=== PATIENT | male | born 1955 | race Caucasian/White ===

== ENCOUNTER → 2022-08-08 09:17 | Outpatient (BNVA) | payer MEDICARE, SELFPAY | PROVIDERS: PCP Family Medicine; Visit Provider Family Medicine | DX: R10.9 Unspecified abdominal pain (principal) | CPT/HCPCS: 81000 ==

== ENCOUNTER 2022-08-21 06:05 | Outpatient (CLI) | payer MEDICARE, SELFPAY ==
--- NOTE | 2022-08-21 06:26 | USCV_ITS ---
Luis Black Age: 67 Gender: M : 1955 Exam Date: 08/21/2022 06:30 Ordering Phys: Vee Santos MD Technologist: Elia Bond Exam Location: [facility] Indication: screening HISTORY: Diameter (cm) AP x Transverse x Length Velocity (cm/s) Waveform Prox Aorta: 1.50 x 1.80 x 85.90 Mid Aorta: 1.31 x 1.77 x 88.70 Distal Aorta: 1.40 x 1.67 x 80.40 Right Iliac Prox: 1.00 x 1.04 x 164.10 Left Iliac Prox: 1.05 x 1.19 x 119.60 Stent Prox Landing x x Aneurysmal Sac Max x x Lt Lat Sac Dim Rt Lat Sac Dim Stent Dist Landing x x Right Iliac Stent x x Left Iliac Stent x x Right Renal Art Left Renal Art FINDINGS: Comparison: none available. No evidence of abdominal aortic aneurysm. Atherosclerotic plaque is noted in the abdominal aorta, mild. There is evidence of atherosclerotic plaque no significan stenosis in the right common iliac artery. There is evidence of atherosclerotic plaque no significan stenosis in the left common iliac artery. CONCLUSIONS No evidence of abdominal aortic aneurysm. Dr. Génesis Meza DO (Electronically Signed) Final Date: 21 August 2022 07:56 S
== END 2022-08-21 06:06 | disposition home or self-care (01) ==
PROVIDERS: PCP Family Medicine; Visit Provider Family Medicine
DX: Z13.6 Encounter for screening for cardiovascular disorders (principal)
CPT/HCPCS: 76706

== ENCOUNTER 2022-09-04 12:05 | Outpatient (CLI) | payer MEDICARE, SELFPAY ==
--- NOTE | 2022-09-04 12:31 | XR_ITS ---
WS: [id number] Lumbar spine with flexion, extension, and neutral lateral, 09/04/2022 Clinical Data: POSTLAMINECTOMY SYNDROME Comparison: None. Findings: There is a posterior lumbar fusion from L3 through L5 with pedicle screws and connecting rods. There are artificial disks at L3-L4, L4-L5 and L5-S1. There are anterior lumbar fusion screws at L3, L4 and L5-S1. There is anterior osteoarthritic change at L1-L2 with disc narrowing at L2-L3. There is a retrolisthe sis of 0.4 cm at L2-L3. On flexion and extension there is no change in the retrolisthesis. There is c alcification in the wall of the abdominal aorta without aneurysm. XR/XR lumbar spine f/e only [id number] Impression: 1. Stable anterior and posterior lumbosacral fusion. 2. Degenerative disc narrowing at L2-L3 with retrolisthesis of 0.4 cm. 3. On flexion and extension there is no change in retrolisthesis.
== END 2022-09-04 12:06 | disposition home or self-care (01) ==
PROVIDERS: PCP Family Medicine; Visit Provider Nurse Practitioner
DX: M96.1 Postlaminectomy syndrome, not elsewhere classified (principal)
CPT/HCPCS: 72120

== ENCOUNTER → 2022-09-10 11:02 | Outpatient (BNVA) | payer MEDICARE, SELFPAY | PROVIDERS: PCP Family Medicine; Visit Provider Family Medicine | DX: R39.9 Unspecified symptoms and signs involving the genitourinary system (principal) | CPT/HCPCS: 81000; 87086 ==

== ENCOUNTER 2022-09-17 08:44 | Outpatient (CLI) | payer MEDICARE, SELFPAY ==
--- NOTE | 2022-09-17 09:00 | CT_ITS ---
WS: [id number] LDCT LUNG CANCER SCREENING HISTORY: lung cancer screening TECHNIQUE: Axial imaging performed from the apices to 1 cm below the costophrenic angles. Coronal and sagittal reformats are submitted with axial MIP series. All CT scans at [facility] use at least one of these dose optimization techniques: automated exposure control; mA and/or kV adjustment per patient size (includes targeted exams where dose is matched to clinical indication); or iterativ e reconstruction. DLP: 69.93 mGy.cm DIvol: Mean CTDIvol: 1.60 (mGy) COMPARISON: None available. Diagnostic quality: Satisfactory Lung Nodules: No pulmonary mass, nodule or endobronchial lesion. Lungs: Mild motion artifact and hazy attenuation probably related to smoking. Subsegmental area of li near atelectasis in the lingula. Heart: Normal size heart. No pericardial effusion. Other findings: No adenopathy. Very minimal atherosclerosis thoracic aorta. Small hiatal hernia. Prio r cholecystectomy. CT/CT lung screening [id number] IMPRESSION: LUNG-RADS: 1-Negative FOLLOW UP: 12 Month: Continue annual screening with LDCT OTHER FINDINGS (S MODIFIER): None.
== END 2022-09-17 08:45 | disposition home or self-care (01) ==
LOC: RAD 08:47
PROVIDERS: PCP Family Medicine; Visit Provider Family Medicine
DX: Z12.2 Encounter for screening for malignant neoplasm of respiratory organs (principal); Z87.891 Personal history of nicotine dependence; R31.9 Hematuria, unspecified
CPT/HCPCS: 71271; 81000

== ENCOUNTER 2022-10-05 10:26 | Outpatient (CLI) | payer MEDICARE, SELFPAY ==
--- NOTE | 2022-10-05 10:42 | XR_ITS ---
WS: [id number] Left shoulder, 2 views, 10/05/2022 Clinical Data: left shoulder pain Comparison: None. Findings: No fractures or dislocations are seen. The AC joint is normal. The adjacent left clavicle, left scapu la and ribs are normal. The soft tissues are unremarkable. XR/XR shoulder LT min 2V* [id number] Impression: Negative left shoulder.
--- NOTE | 2022-10-05 10:42 | XR_ITS ---
WS: [email or web address] Cervical spine, 3 views, 10/05/2022 Clinical Data: neck pain Comparison: None. Findings: No compression fractures are seen. There is degenerative disc narrowing at C3-C4, C4-C5 and C5-C6. There is osteophytic spurring from C3 through C6. There is no prevertebral soft tissue swelli ng. The odontoid is unremarkable. The soft tissues of the neck and the lung apices are normal. XR/XR cervical spine 3V* [id number] Impression: Osteoarthritis and degenerative disc disease C3-C6
== END 2022-10-05 10:27 | disposition home or self-care (01) ==
PROVIDERS: PCP Family Medicine; Visit Provider Family Medicine
DX: M25.512 Pain in left shoulder (principal); M47.812 Spondylosis without myelopathy or radiculopathy, cervical region; M50.31 Other cervical disc degeneration, high cervical region
CPT/HCPCS: 72040; 73030

== ENCOUNTER → 2022-10-15 08:39 | Outpatient (BNVA) | payer MEDICARE, SELFPAY | PROVIDERS: PCP Family Medicine; Visit Provider Anesthesiology Pain Medicine | DX: G89.29 Other chronic pain (principal); M51.16 Intervertebral disc disorders with radiculopathy, lumbar region; M79.604 Pain in right leg; M79.605 Pain in left leg | CPT/HCPCS: 99205 ==

== ENCOUNTER → 2022-10-17 13:40 | Outpatient (BNVA) | payer MEDICARE, SELFPAY | PROVIDERS: PCP Family Medicine; Visit Provider Urology | DX: R31.21 Asymptomatic microscopic hematuria (principal) | CPT/HCPCS: 52000; 81003; 87086; 88112; 99203 ==

== ENCOUNTER 2022-10-19 17:02 | Emergency (ER) | payer MEDICARE, SELFPAY ==
[2022-10-19 17:22] VITALS: PULSE 118; RESP 18; TEMP 37.2; O2SAT 95
--- NOTE | 2022-10-19 21:05 | ED_ITS ---
HPI - Fever General: Chief Complaint: Fever Stated Complaint: urinary pain/fever/cant walk Time Seen by Provider: 10/19/22 21:03 PFSH ED PFSH: Medical History Asymptomatic microscopic hematuria Chronic back pain History of diverticulitis Hyperlipidemia Seasonal allergies Tobacco use Surgical History History of back surgery x 5 History of carpal tunnel release of both wrists History of cholecystectomy Family History Father , IN HIS 80'S Diabetes Cancer colon Mother , IN HER 80'S Dementia Cancer brain tumor Denies family history of CAD (coronary artery disease) Chronic kidney disease (CKD) Family history of premature coronary artery disease Hypertension Stroke Social History Smoking and tobacco status: current every day smoker cigarettes Packs smoked per day: 1 [ Other cigarette details: started smoking at 20] Quit status (tobacco): not considering quitting Alcohol intake: current Alcohol intake frequency: holidays/special occasions only Household members: spouse Marital status: service: Yes (1 year) status: Discharged branch: [employer] Current occupational status: retired History of recent travel: No Course Vital Signs: Vital signs: Vital Signs Temperature 99.0 F 10/19/22 17:22 Pulse Rate 118 H 10/19/22 17:22 Respiratory Rate 18 10/19/22 17:22 Pulse Oximetry 95 10/19/22 17:22 Oxygen Delivery Me thod 10/19/22 17:22 Discharge Plan Discharge Condition: Stable Prescriptions: No Action atorvastatin 20 mg tablet 20 mg PO DAILY loperamide [Imodium A-D] 2 mg capsule 2 mg PO QID PRN tizanidine 4 mg tablet 4 mg PO Q8H PRN loratadine [Claritin] 10 mg tablet 10 mg PO DAILY acetaminophen [Tylenol Extra Strength] 500 mg tablet 500 mg PO Q6H PRN azelastine-fluticasone 137-50 mcg/spray spray,non-aerosol 1 spray intranasal BID Qty: 23 0RF Rx Instructions: administer into each nostril ibuprofen 800 mg tablet 800 mg PO Q8H PRN (Reason: pain) Qty: 30 0RF sulfamethoxazole-trimethoprim [Bactrim DS] 800-160 mg tablet 1 tab PO BID 7 Days Qty: 14 0RF Referrals: Vee Santos MD [Primary Care Provider] - Coding Level of Care Code 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
== END 2022-10-19 21:29 | disposition left against medical advice (07) ==
PROVIDERS: Emergency Provider Family Medicine; PCP Family Medicine
DX: Z53.21 Procedure and treatment not carried out due to patient leaving prior to being seen by health care provider (principal)

== ENCOUNTER 2022-11-07 06:00 | Outpatient (RCR) | payer MEDICARE, SELFPAY | END 2022-11-27 23:59 | disposition home or self-care (01) | LOC: SPT 06:00 | PROVIDERS: PCP Family Medicine; Visit Provider Family Medicine | DX: M25.512 Pain in left shoulder (principal); M54.2 Cervicalgia | CPT/HCPCS: 97110; 97161 ==

== ENCOUNTER 2022-11-15 10:28 | Outpatient (CLI) | payer MEDICARE, SELFPAY ==
--- NOTE | 2022-11-15 10:30 | CT_ITS ---
WS: [id number] CT ABDOMEN PELVIS TECHNIQUE: Noncontrast CT of the abdomen and contrast-enhanced CT of the abdomen and pelvis with evert nal and sagittal reformatted images. CLINICAL INFORMATION: HEMATURIA COMPARISON: None. DLP: 2185.[address] scans at [facility] use at least one of these dose optimization techniques: automated e xposure control; mA and/or kV adjustment per patient size (includes targeted exams where dose is matc hed to clinical indication); or iterative reconstruction. FINDINGS: Lung bases are well aerated. Slight bibasilar atelectasis. Diffuse fatty infiltration liver. Cholecys tectomy clips. Normal portal vein and splenic vein. Normal pancreatic parenchymal enhancement. Normal spleen. Normal GE junction. Normal caliber abdominal aorta. Aortic calcification. Celiac and SMA are patent. Adrenal glands are normal. Normal renal parenchymal enhancement. No hydronephrosis. Small RI GHT renal cyst measuring 6 mm. Normal excretion on the delayed images. No filling defects in the ureter. Bladder is decompressed wit h mild diffuse bladder wall thickening. Enlarged prostate measuring 3.5 x 4.1 CM. Poor filling of the anterior aspect of the bladder with bladder wall thickening. Suggestion of a small amount of interna l debris in this location. This can be further evaluated with cystoscopy. Sigmoid diverticulosis. No evidence of acute diverticulitis. No free fluid in the abdomen or pelvis. Prior postoperative changes anterior and posterior fusion lumbar spine. Laminectomy defects. Grade 1 anterolisthesis L5 on S1. Interbody fusion grafts. CT/CT abdomen pelvis wo/w [id number] IMPRESSION: 1. Normal bilateral renal parenchymal enhancement. No hydronephrosis. Small RI GHT renal cyst measuring 6 mm. 2. Normal ureters bilaterally. No filling defects in the ureters. 3. Enlarged prostate measuring 3.5 x 4.1 cm. Evidence of bladder outlet obstru ction. 4. Wall thickening involving the anterior aspect of the bladder with poor fill ing in this area. Suggestion of some internal debris or soft tissue in this reg ion. Recommend further evaluation with cystoscopy. 5. Sigmoid diverticulosis. 6. Prior postoperative changes lumbar spine. 7. Diffuse fatty infiltration liver. 8. Prior cholecystectomy clips.
[2022-11-15] MEDS: iohexol 350 mg/mL 500 mL Btl (per mL) IV (11:10)
[2022-11-15 11:25] LABS: Blood Urea Nitrogen 18 mg/dL (8-23); Glomerular Filtration Rate 84.7 mL/min (90-130)
== END 2022-11-15 10:29 | disposition home or self-care (01) ==
PROVIDERS: PCP Family Medicine; Visit Provider Urology
DX: R31.9 Hematuria, unspecified (principal); Z90.49 Acquired absence of other specified parts of digestive tract; K76.0 Fatty (change of) liver, not elsewhere classified; K57.30 Diverticulosis of large intestine without perforation or abscess without bleeding; N40.0 Benign prostatic hyperplasia without lower urinary tract symptoms; N28.1 Cyst of kidney, acquired
CPT/HCPCS: 74178; 82565; 84520; Q9967

== ENCOUNTER → 2022-11-15 10:28 | Outpatient (BNVA) | payer MEDICARE, SELFPAY | PROVIDERS: PCP Family Medicine; Visit Provider Urology | DX: R31.21 Asymptomatic microscopic hematuria (principal) | CPT/HCPCS: 81003; 99213 ==

== ENCOUNTER → 2022-11-16 09:24 | Outpatient (BNVA) | payer MEDICARE, SELFPAY | PROVIDERS: PCP Family Medicine; Visit Provider Family Medicine | DX: E78.5 Hyperlipidemia, unspecified (principal); R42 Dizziness and giddiness | CPT/HCPCS: 80053; 83735; 84443; 85025 ==

== ENCOUNTER → 2022-12-03 14:29 | Outpatient (BNVA) | payer MEDICARE, SELFPAY | PROVIDERS: PCP Family Medicine; Visit Provider Anesthesiology Pain Medicine | DX: G89.29 Other chronic pain (principal); M54.16 Radiculopathy, lumbar region | CPT/HCPCS: 64483; 64484; J1100; J3490 ==

== ENCOUNTER 2022-12-17 12:38 | Outpatient (CLI) | payer MEDICARE, SELFPAY ==
--- NOTE | 2022-12-17 13:00 | MR_ITS ---
WS: [email or web address] MRI CERVICAL SPINE NONCONTRAST TECHNIQUE: Sagittal T1, T2 and STIR imaging. Axial T2, gradient, and fiesta imaging. CLINICAL INFORMATION: neck pain COMPARISON: None. FINDINGS: Straightening of the normal cervical lordosis. Mild to moderate central canal stenosis C3-C6. Cord si gnal is normal. C2-C3: Normal. C3-C4: Disc osteophyte complex with endplate ridging. Mild central canal stenosis. Slight indentation on cervical cord. Moderate LEFT and mild RIGHT bony foraminal narrowing. Mild facet arthropathy. C4-C5: Disc osteophyte complex with endplate ridging. Moderate central canal stenosis. Indentation RI GHT ventral cervical cord. Moderate to severe LEFT and moderate RIGHT bony foraminal narrowing. Mild facet arthropathy. C5-C6: Disc osteophyte complex with endplate ridging. LEFT pericentral disc osteophyte protrusion wit h indentation on the LEFT ventral cervical cord. Moderate central canal stenosis. Moderate to severe bilateral bony foraminal narrowing. Mild facet arthropathy. C6-C7: Disc osteophyte complex with endplate ridging. Mild central canal stenosis. Moderate LEFT grea ter than RIGHT foraminal narrowing. C7-T1: Normal. Visualized brain stem structures: Normal. Prevertebral soft tissues: Normal. MR/MR cervical spin wo con* [id number] IMPRESSION: 1. Straightening of the normal cervical lordosis. Cord signal is normal. 2. Mild central canal stenosis C3-C4. Moderate central canal stenosis C4-C5 an d C5-C6 with disc osteophyte protrusions and indentation on the cervical cord. Mild central canal stenosis C6-C7. 3. Multilevel moderate to severe foraminal narrowing worse at bilateral C4-C5 and bilateral C5-C6. Moderate LEFT greater than RIGHT bony foraminal narrowing C6-C7.
--- NOTE | 2022-12-17 13:45 | MR_ITS ---
WS: [email or web address] MRI HEAD WITHOUT CONTRAST TECHNIQUE: Sagittal T1, T2 axial, T2 axial FLAIR, axial and coronal T1 images, axial susceptibility w eighted imaging, axial diffusion weighted images, and coronal T2 images were obtained. CLINICAL INFORMATION: dizziness COMPARISON: None. FINDINGS: No evidence of restricted diffusion to suggest acute ischemia. Ventricular system and basal cisterns are patent. Mild small vessel changes. Mild parenchymal volume loss. Normal posterior fossa. Normal v ascular flow voids at the skull base. No extra-axial fluid collections. No evidence of mass or mass e ffect. Mild mucosal thickening in the ethmoid air cells and frontal sinuses. Normal posterior nasopharynx. Mild mucosal thickening RIGHT mastoid tip. LEFT mastoid air cells well aerated. Normal vascular flow voids at the skull base. Normal optic chiasm and pituitary infundibulu m. Mild symmetric atrophy temporal lobes and hippocampal formations. Normal cavernous sinuses and Mec caitlin's cave. No hemosiderin on susceptibly weighted images. MR/MR head wo con* [id number] IMPRESSION: 1. No evidence of restricted diffusion to suggest acute ischemia. 2. Mild small vessel changes with mild parenchymal volume loss. 3. No hemosiderin on the susceptibility weighted images. Normal optic chiasm a nd pituitary infundibulum. 4. Trace mucosal thickening RIGHT mastoid tip. 5. No other acute findings.
== END 2022-12-17 12:39 | disposition home or self-care (01) ==
LOC: RAD 12:41
PROVIDERS: PCP Family Medicine; Visit Provider Family Medicine
DX: R42 Dizziness and giddiness (principal); M48.02 Spinal stenosis, cervical region; M50.221 Other cervical disc displacement at C4-C5 level; M50.222 Other cervical disc displacement at C5-C6 level
CPT/HCPCS: 70551; 72141

== ENCOUNTER → 2022-12-25 10:01 | Outpatient (BNVA) | payer MEDICARE, SELFPAY | PROVIDERS: PCP Family Medicine; Visit Provider Anesthesiology Pain Medicine | DX: G89.29 Other chronic pain (principal); M51.16 Intervertebral disc disorders with radiculopathy, lumbar region; M48.02 Spinal stenosis, cervical region; M79.604 Pain in right leg; M79.605 Pain in left leg | CPT/HCPCS: 99215 ==

== ENCOUNTER → 2023-01-01 09:14 | Outpatient (BNVA) | payer MEDICARE, SELFPAY | PROVIDERS: PCP Family Medicine; Referring Provider Family Medicine; Visit Provider Orthopaedic Surgery | DX: M48.02 Spinal stenosis, cervical region (principal); M25.512 Pain in left shoulder | CPT/HCPCS: 72040; 99204 ==

== ENCOUNTER 2023-01-28 06:00 | Outpatient (RCR) | payer MEDICARE, SELFPAY | END 2023-02-27 23:59 | disposition home or self-care (01) | LOC: SPT 06:00 | PROVIDERS: Visit Provider Family Medicine | DX: R42 Dizziness and giddiness (principal) | CPT/HCPCS: 97110; 97162 ==

== ENCOUNTER → 2023-02-21 09:41 | Outpatient (BNVA) | payer MEDICARE, SELFPAY | PROVIDERS: PCP Family Medicine; Visit Provider Anesthesiology Pain Medicine | DX: G89.29 Other chronic pain (principal); M51.16 Intervertebral disc disorders with radiculopathy, lumbar region; M48.02 Spinal stenosis, cervical region | CPT/HCPCS: 99214 ==

== ENCOUNTER → 2023-04-11 11:34 | Outpatient (BNVA) | payer MEDICARE, SELFPAY | PROVIDERS: PCP Family Medicine; Visit Provider Family Medicine | DX: E78.5 Hyperlipidemia, unspecified (principal); Z13.1 Encounter for screening for diabetes mellitus; R25.1 Tremor, unspecified | CPT/HCPCS: 80053; 80061; 83036 ==

== ENCOUNTER → 2023-05-23 10:05 | Outpatient (BNVA) | payer MEDICARE, SELFPAY | PROVIDERS: PCP Family Medicine; Visit Provider Anesthesiology Pain Medicine | DX: G89.29 Other chronic pain; M51.16 Intervertebral disc disorders with radiculopathy, lumbar region; M48.02 Spinal stenosis, cervical region | CPT/HCPCS: 99214 ==

== ENCOUNTER 2023-06-10 07:45 | Outpatient (RCR) | payer MEDICARE, SELFPAY | END 2023-06-29 23:59 | disposition home or self-care (01) | LOC: SPT 07:45 | PROVIDERS: Visit Provider Family Medicine | DX: R42 Dizziness and giddiness; H81.10 Benign paroxysmal vertigo, unspecified ear | CPT/HCPCS: 64483; 64484; 95992; 97161; J1100; J3490 ==

== ENCOUNTER → 2023-06-24 13:51 | Outpatient (BNVA) | payer MEDICARE, SELFPAY | PROVIDERS: Visit Provider Anesthesiology Pain Medicine | DX: M54.16 Radiculopathy, lumbar region (principal); G89.29 Other chronic pain | CPT/HCPCS: 64483; 64484; J1100; J3490 ==

== ENCOUNTER → 2023-08-07 13:26 | Outpatient (BNVA) | payer MEDICARE, SELFPAY | PROVIDERS: PCP Family Medicine; Visit Provider Family Medicine | DX: E16.2 Hypoglycemia, unspecified (principal); E78.5 Hyperlipidemia, unspecified | CPT/HCPCS: 80053; 80061; 83036 ==

== ENCOUNTER 2023-11-15 08:22 | Outpatient (CLI) | payer MEDICARE, SELFPAY ==
--- NOTE | 2023-11-15 08:45 | CT_ITS ---
WS: [email or web address] LDCT LUNG CANCER SCREENING HISTORY: lung cancer screening TECHNIQUE: Axial imaging performed from the apices to 1 cm below the costophrenic angles. Coronal and sagittal reformats are submitted with axial MIP series. All CT scans at [facility] use at least one of these dose optimization techniques: automated exposure control; mA and/or kV adjustment per patient size (includes targeted exams where dose is matched to clinical indication); or iterativ e reconstruction. DLP: 96.07 mGy.cm DIvol: Mean CTDIvol: 1.90 (mGy) COMPARISON: 09/07/2022 Diagnostic quality: Satisfactory Lungs: No pulmonary mass or nodule. No pneumonia. No endobronchial lesions. Heart: Normal size heart with no pericardial effusion.. Moderate coronary artery calcification. Other findings: Mild atherosclerosis aorta. No aneurysm. No adenopathy. Prior cholecystectomy. No adr enal mass. IMPRESSION: CT/CT lung screening [id number] LUNG-RADS: 1-Negative FOLLOW UP: 12 Month: Continue annual screening with LDCT OTHER FINDINGS (S MODIFIER): None.
== END 2023-11-15 08:23 | disposition home or self-care (01) ==
LOC: RAD 08:24
PROVIDERS: Visit Provider Family Medicine
DX: Z12.2 Encounter for screening for malignant neoplasm of respiratory organs (principal); Z87.891 Personal history of nicotine dependence
CPT/HCPCS: 71271

== ENCOUNTER 2023-11-26 10:18 | Outpatient (RCR) | payer MEDICARE, SELFPAY | END 2023-11-28 23:59 | disposition home or self-care (01) | LOC: SPT 10:18 | PROVIDERS: Visit Provider Family Medicine | DX: R42 Dizziness and giddiness (principal) | CPT/HCPCS: 95992; 97161 ==

== ENCOUNTER 2023-12-04 11:07 | Outpatient (RCR) | payer MEDICARE, SELFPAY | END 2023-12-29 23:59 | disposition home or self-care (01) | LOC: SPT 11:07 | PROVIDERS: PCP Family Medicine; Visit Provider Family Medicine | DX: R42 Dizziness and giddiness (principal) | CPT/HCPCS: 95992 ==

== ENCOUNTER 2023-12-26 10:16 | Inpatient (IN) | payer MEDICARE, SELFPAY ==
[2023-12-26] VITALS (11 sets, daily range): BP systolic 126–150; BP diastolic 77–97; PULSE 68–85; RESP 15–26; TEMP 36.7–37.9; O2SAT 91–98; BMI 32.5; BMI 29.9
--- NOTE | 2023-12-26 10:16 | XR_ITS ---
WS: [email or web address] Exam: XR chest 1V portable [id number] Date/Time of Exam: 12/26/2023 10:33 AM Reason For Exam: weakness No priors. Findings: The lungs are clear and fully expanded. Costophrenic angles are sharp. No infiltrates. Bronchovascula r relief appears normal. Cardiac silhouette is unremarkable. Bony elements are intact. IMPRESSION: Unremarkable chest radiograph.
--- NOTE | 2023-12-26 10:17 | ECG_ITS ---
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 Measurements Intervals [place] Rate: 82 P: 16 NV: 177 QRS: 40 QRSD: 82 T: 49 QT: 313 QTc: 366 Interpretive Statements SINUS RHYTHM NONSPECIFIC T-WAVE ABNORMALITY No previous ECG available for comparison Electronically Signed On 12-26-2023 11:19:14 CDT by Ezequeil Colin M.D. [id number]
--- NOTE | 2023-12-26 10:22 | W.ED.WEAKNES ---
HPI - Weakness General: Chief complaint: Weakness Stated complaint: WEAKNESS Time Seen by Provider: 12/26/23 10:16 Source: patient and EMS Mode of arrival: EMS Limitations: no limitations History of Present Illness: 68-year-old male states that over the last 4 to 5 days he has been having fevers along with diarrhea. States he is having 2-3 diarrheas a day states his temp is been up to 101 at home. He states that he has had increasing weakness states he is having difficulty walking today due to his weakness. He denies any acute pain he has chronic back pain had a slight cough but denies any productive nature denies any shortness of breath denies vomiting Associated symptoms: Reports chills and fever(s); Denies chest pain, dysuria, headache(s), nausea or vomiting Review of Systems Const: Reports: fever(s), chills, fatigue and malaise; Denies: body aches or change in appetite Eyes: Denies: blurry vision or eye discomfort ENMT: Denies: throat pain or dental pain Card: Denies: chest pain Resp: Reports: non-productive cough; Denies: dyspnea GI: Reports: diarrhea; Denies: abdominal pain, nausea or vomiting : Denies: dysuria Musc: Reports: back pain; Denies: neck pain Skin/Breast: Denies: rash Neuro: Denies: headache(s) PFSH ED PFSH: Medical History Asymptomatic microscopic hematuria Tobacco use Seasonal allergies Chronic back pain Hyperlipidemia History of diverticulitis Surgical History History of cholecystectomy History of back surgery x 5 History of carpal tunnel release of both wrists Family History Father , IN HIS 80'S Diabetes Cancer colon Mother , IN HER 80'S Dementia Cancer brain tumor Denies family history of CAD (coronary artery disease) Chronic kidney disease (CKD) Family history of premature coronary artery disease Hypertension Stroke Social History Smoking and tobacco/nicotine status: current every day tobacco/nicotine user cigarettes Packs smoked per day: 1 [ Other cigarette details: started smoking at 20] Quit status (tobacco/nicotine): not considering quitting Alcohol intake: current Alcohol intake frequency: holidays/special occasions only Substance/Drug Use: never Household members: spouse Marital status: service: Yes (1 year) status: Discharged branch: [employer] Current occupational status: retired Physical Exam Const: COMMON NORMALS: patient oriented x3 HENMT: COMMON NORMALS: normocephalic and atraumatic HEAD & SCALP: normocephalic and atraumatic Eye: COMMON NORMALS: Equal, round and reactive pupils present and EOMs intact bilaterally PUPIL: Yes Equal, round and reactive pupils present Neck/C-Spine: COMMON NORMALS: full ROM and supple Chest: COMMONS NORMALS: normal inspection of the chest and normal palpation of entire chest wall Resp: COMMON NORMALS: normal respiratory effort, No retractions, No use of accessory muscles and clear to auscultation bilaterally AUSCULTATION: clear to auscultation bilaterally Cardio: COMMON NORMALS: regular rate, regular rhythm and No murmurs present (Cardio) RATE: regular rate RHYTHM: regular rhythm GI: COMMON NORMALS: Normal to inspection, nondistended, normoactive bowel sounds present, Soft to palpation, non-tender and no masses PALPATION: Yes Soft to palpation Extremity: COMMON NORMALS: normal to inspection and full ROM Neuro: COMMON NORMALS: patient oriented x3, moves all extremities and no focal motor deficits Psych: COMMON NORMALS: mental status grossly normal, Normal thought process present and cooperative THOUGHT PROCESS: Normal thought process present Skin: COMMON NORMALS: no rashes or lesions noted and no wounds GENERAL SKIN EXAM: no rashes or lesions noted Course Vital Signs: Vital signs: Vital Signs Temperature 98.1 F 12/26/23 12:00 Pulse Rate 78 12/26/23 13:00 Respiratory Rate 16 12/26/23 13:00 Blood Pressure 135/77 12/26/23 13:00 Pulse Oximetry 98 12/26/23 13:00 Oxygen Delivery Me thod Room Air 12/26/23 13:00 MDM - Weakness Medical Decision Making Patient presents here with fever he is also had some diarrhea along with generalized weakness he does have acute cystitis here. He is feeling improved after IV fluids will admit due to his weakness. Did discuss his abdomen findings with the hospitalist as well he has no acute abdominal pain no tenderness on his abdomen or vomiting will admit and treat his UTI. Medical Records I reviewed the patient's medical records. Lab Data I reviewed the patient's lab results. 12/26/23 10:52 12/26/23 10:52 Laboratory Results WBC 11.64 10^3/uL (3.29-11.43) H 12/26/23 10:52 Corrected WBC Cancelled 12/26/23 09:56 RBC 5.39 10^6/uL (3.85-5.65) 12/26/23 10:52 Hgb 17.00 g/dL (11.27-16.99) H 12/26/23 10:52 Hct 48.9 % (37-53) 12/26/23 10:52 MCV 90.7 fl (82-101) 12/26/23 10:52 MCH 31.5 pg (27-33) 12/26/23 10:52 MCHC 34.8 g/dL (30-55) 12/26/23 10:52 RDW 13.0 % (12.1-15.1) 12/26/23 10:52 Plt Count 283 10^3/cmm (157-399) 12/26/23 10:52 MPV 8.9 fL (7.4-10.4) 12/26/23 10:52 Gran % Cancelled 12/26/23 09:56 Neut % (Auto) 80.3 % 12/26/23 10:52 Lymph % (Auto) 9.3 % 12/26/23 10:52 [place] % (Auto) 8.7 % 12/26/23 10:52 Eos % (Auto) 0.6 % 12/26/23 10:52 Baso % (Auto) 0.7 % 12/26/23 10:52 Neut # (Auto) 9.35 10^3/uL (1.8-7.7) H 12/26/23 10:52 Lymph # (Auto) 1.1 10^3/uL (0.8-4.8) 12/26/23 10:52 [place] # (Auto) 1.0 10^3/uL (0.2-0.9) H 12/26/23 10:52 Eos # (Auto) 0.1 10^3/uL (0.0-0.8) 12/26/23 10:52 Baso # (Auto) 0.1 10^3/uL (0.0-0.1) 12/26/23 10:52 Absolute Gran (auto) Cancelled 12/26/23 09:56 Nucleated RBC % (auto) 0 % 12/26/23 10:52 Nucleated RBCs # 0.0 /100WBC 12/26/23 10:52 Sodium 135 mmol/L (136-145) L 12/26/23 10:52 Potassium 4.1 mmol/L (3.5-5.1) 12/26/23 10:52 Chloride 102 mmol/L (98-107) 12/26/23 10:52 Carbon Dioxide 22 mmol/L (22-29) 12/26/23 10:52 Anion Gap 15.1 (5-19) 12/26/23 10:52 BUN 13 mg/dL (8-23) 12/26/23 10:52 Creatinine 1.0 mg/dL (0.7-1.2) 12/26/23 10:52 GFR Calculation 74.8 mL/min (90-130) L 12/26/23 10:52 Glucose 95 mg/dL (65-115) 12/26/23 10:52 POC Glucose 97 mg/dL (70-110) 12/26/23 10:40 Calculated Osmolality 280 mOsm/kg (285-295) L 12/26/23 10:52 Lactic Acid 1.7 mmol/L (0.5-2.2) 12/26/23 10:52 Calcium 9.2 mg/dL (8.5-10.5) 12/26/23 10:52 Magnesium 2.1 mg/dL (1.7-2.3) 12/26/23 10:52 Total Bilirubin 1.5 mg/dL (0.15-1.2) H 12/26/23 10:52 AST 18 U/L (0-40) 12/26/23 10:52 ALT 20 U/L (0-41) 12/26/23 10:52 Alkaline Phosphatase 80 U/L (40-130) 12/26/23 10:52 Total Protein 7.5 g/dL (6.6-8.7) 12/26/23 10:52 Albumin 3.8 g/dL (3.5-5.2) 12/26/23 10:52 Globulin 3.7 g/dL (1.3-4.6) 12/26/23 10:52 Lipase 34 U/L (13-60) 12/26/23 10:52 Urine Color Yellow (Yellow) 12/26/23 11:25 Urine Appearance Sl hazy (CLEAR) A 12/26/23 11:25 Urine pH 5 (5-7) 12/26/23 11:25 Ur Specific [place] 1.010 (1.005-1.030) 12/26/23 11:25 Urine Protein 1+ (Negative) H 12/26/23 11:25 Urine Glucose (UA) Norm (Normal) 12/26/23 11:25 Urine Ketones 1+ (Negative) H 12/26/23 11:25 Urine Blood 3+ (Negative) H 12/26/23 11:25 Urine Nitrate Negative (Negative) 12/26/23 11:25 Urine Bilirubin 1+ (Negative) H 12/26/23 11:25 Urine Urobilinogen 4 mg/dL (Negative) H 12/26/23 11:25 Ur Leukocyte Esterase 2+ (Negative) H 12/26/23 11:25 Urine RBC 5-10 /hpf (0-2) H 12/26/23 11:25 Urine WBC 40-55 /hpf (0-5) H 12/26/23 11:25 Ur Squamous Epith Cells 0-4 /hpf (0-5) H 12/26/23 11:25 Ur Renal Epithelial Cell 0-4 /hpf 12/26/23 11:25 Amorphous Sediment Not Reportable 12/26/23 11:25 Urine Bacteria 2+ /hpf (NONE) H 12/26/23 11:25 Urine Mucus 2+ /hpf 12/26/23 11:25 Ur Oval Fat Bodies 2+ /hpf 12/26/23 11:25 Influenza Type A Ag Negative (Negative) 12/26/23 10:50 Influenza Type B Ag Negative (Negative) 12/26/23 10:50 SARS-CoV-2 Ag (Rapid) negative (Negative) 12/26/23 10:50 All radiology interpretation(s) finalized by discharge EKG Data EKG 1: I personally reviewed and interpreted this EKG as follows: EKG interpretation date: 12/26/23 EKG interpretation time: 10:38 Interpretation: nsr hr [address] or t wave abnormalities qrs 82 qtc 351 Discharge Plan Discharge Patient Disposition: Admitted As Inpatient Clinical Impression: Acute cystitis, Generalized weakness Condition: Stable Prescriptions: No Action acetaminophen [Tylenol Extra Strength] 500 mg tablet 500 mg PO Q6H PRN (Reason: Pain) (DME) FreeStyle Michael 2 [place] Misc See Rx Instructions .MEDSUPPLY Qty: 1 0RF Rx Instructions: Use as directed to check blood sugar (DME) FreeStyle Michael 2 Sensor Kit See Rx Instructions .MEDSUPPLY Qty: 2 11RF Rx Instructions: Change every 14 days; Use as directed to check blood sugar acetaminophen-codeine 300-15 mg tablet 1 tab PO BID PRN (Reason: pain) Qty: 30 0RF ibuprofen 800 mg tablet 800 mg PO Q8H PRN (Reason: pain) Qty: 30 0RF Flonase Allergy Relief 50 mcg/actuation [place],Suspension 2 spray INTRANASAL DAILY PRN (Reason: Allergy Symptoms) Rx Instructions: administer into each nostril tizanidine 4 mg tablet 4 mg PO Q8H [place] NyQuil Cough 6.25-15 mg/15 mL Solution 15 ml PO Q4H PRN (Reason: Sleep) Referrals: Vee Santos MD [Primary Care Provider] - Coding Level of Care Code ED 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
[2023-12-26 10:47] LABS: Glucose Point of Care 97 mg/dL (70-110)
[2023-12-26] MEDS: sodium chloride 0.9% 1,000 ML 999 ML IV (10:49)
[2023-12-26] MEDS: acetaminophen 500 mg Tablet 1000 MG PO (10:49)
[2023-12-26 11:22] LABS: Basophils # 0.1 10^3/uL (0.0-0.1); Basophils % 0.7 %; Eosinophils # 0.1 10^3/uL (0.0-0.8); Eosinophils % 0.6 %; Hematocrit 48.9 % (37-53); Lymphocytes # 1.1 10^3/uL (0.8-4.8); Lymphocytes % 9.3 %; Mean Corpuscular HGB Conc 34.8 g/dL (30-55); Mean Corpuscular Hemoglobin 31.5 pg (27-33); Mean Corpuscular Volume 90.7 fl (82-101); Mean Platelet Volume 8.9 fL (7.4-10.4); Monocytes % 8.7 %; Neutrophils # 9.35 10^3/uL (1.8-7.7); Neutrophils % 80.3 %; Nucleated Red Blood Cells % 0 %; Platelet Count 283 10^3/cmm (157-399); Red Blood Count 5.39 10^6/uL (3.85-5.65); White Blood Count 11.64 10^3/uL (3.29-11.43)
[2023-12-26 11:27] LABS: SARS Covid-2 Antigen negative (Negative)
[2023-12-26 11:30] LABS: Influenza A by IFA Negative (Negative); Influenza B by IFA Negative (Negative)
[2023-12-26 11:36] LABS: Alanine Aminotransferase 20 U/L (0-41); Albumin Level 3.8 g/dL (3.5-5.2); Alkaline Phosphatase 80 U/L (40-130); Anion Gap 15.1 (5-19); Aspartate Amino Transferase 18 U/L (0-40); Blood Urea Nitrogen 13 mg/dL (8-23); Calcium 9.2 mg/dL (8.5-10.5); Carbon Dioxide 22 mmol/L (22-29); Chloride 102 mmol/L (98-107); Creatinine Clr Calc Pharmacy 69.4001; Globulin 3.7 g/dL (1.3-4.6); Glomerular Filtration Rate 74.8 mL/min (90-130); Glucose 95 mg/dL (65-115); Lipase 34 U/L (13-60); Magnesium 2.1 mg/dL (1.7-2.3); Osmolality Calculated 280 mOsm/kg (285-295); Potassium 4.1 mmol/L (3.5-5.1); Sodium 135 mmol/L (136-145); Total Bilirubin 1.5 mg/dL (0.15-1.2); Total Protein 7.5 g/dL (6.6-8.7)
[2023-12-26 11:40] LABS: Lactic Sepsis W/Reflex 1.7 mmol/L (0.5-2.2)
--- NOTE | 2023-12-26 11:40 | CT_ITS ---
WS: [id number] CT ABDOMEN PELVIS TECHNIQUE: Contrast-enhanced CT of the abdomen and pelvis with coronal and sagittal reformatted image s. CLINICAL INFORMATION: diarrhea/abd pain COMPARISON: CT 11/15/2022 DLP: 867.[address] scans at [facility] use at least one of these dose optimization techniques: automated e xposure control; mA and/or kV adjustment per patient size (includes targeted exams where dose is matc hed to clinical indication); or iterative reconstruction. FINDINGS: Mobile cecum is been displaced into the mid abdomen at the level of the umbilicus with inte rposed small bowel in the RIGHT lower quadrant. This is new compared to 11/15/2022. Suggestion of slig ht tethering of the ileocolic mesentery in the RIGHT lower quadrant suspicious for early or mild ceca l volvulus. Area of twisting/narrowing axial image 56 series 4. Air distended and normal caliber cecu m without evidence of inflammation or thickening. No free fluid. No pneumatosis. Fluid distended smal l bowel loops in RIGHT lower quadrant with submucosal enhancement suspicious for early or developing obstruction. Bibasilar atelectasis. Diffuse fatty infiltration of the liver. Cholecystectomy clips. Normal portal vein and splenic vein. Normal pancreatic parenchymal enhancement. Normal spleen. Normal GE junction. Adrenal glands are normal. Normal renal parenchymal enhancement. No hydronephrosis. Small bilateral r enal cysts. Normal caliber abdominal aorta. Mild aortic calcification. Celiac and SMA are patent. Sigmoid diverticulosis. No evidence of acute diverticulitis. Enlarged nodular prostate with evidence of bladder outlet obstruction. Recommend correlation PSA. Pr ostate measures 4.9 cm. Diffuse bladder wall thickening. Prior extensive postoperative changes lumbar spine. Decompressive laminectomy defects in the lumbar spine. IMPRESSION: 1. Displacement of the cecum into the mid abdomen is new from previous suspicious for early cecal vo lvulus. However, no evidence of significant bowel wall thickening or pneumatosis. Area of tethering s een on image 56 series 4. 2. Fluid distended ileal loops of enhancing small bowel in the RIGHT lower quadrant suspicious for e calin or developing partial obstruction. No pneumatosis or free air. 3. Sigmoid diverticulosis. No evidence of acute diverticulitis. 4. Enlarged enhancing nodular prostate appears progressed compared to previous. Evidence of bladder outlet obstruction. Recommend correlation PSA. Findings suspicious for neoplasia. * Notified Jovon Abraham MD at 12/26/2023 12:53 PM.
[2023-12-26 11:53] LABS: Add Urine Microscopic? YES; Bilirubin Urine 1+ (Negative); Blood Urine 3+ (Negative); Glucose Urine UA Norm (Normal); Ketones Urine 1+ (Negative); Leukocyte Esterase Urine 2+ (Negative); Nitrate Urine Negative (Negative); Protein Urine 1+ (Negative); Urine Appearance SL Hazy (CLEAR); Urine Color Yellow (Yellow); Urobilinogen Urine 4 mg/dL (Negative); pH Urine 5 (5-7)
[2023-12-26 11:56] LABS: Add Urine Culture? Yes; Bacteria Urine 2+ /hpf; Mucus Urine 2+ /hpf; Oval Fat Bodies Urine 2+ /hpf; Renal Epithelial Cells Urine 0-4 /hpf; Squamous Epithelial Cell Urine 0-4 /hpf (0-5); WBC Urine 40-55 /hpf (0-5)
[2023-12-26] MEDS: iohexol 350 mg/mL 500 mL Btl (per mL) IV (12:08)
[2023-12-26] MEDS: cefTRIAXone 1,000 MG in sodium chloride 0.9% (plus) 50 ML 100 MG IV (12:17)
[2023-12-26] MEDS: piperacillin-tazobactam 3.375 GM in sodium chloride 0.9% (plus) 50 ML IV ×2 (13:01→20:46)
--- NOTE | 2023-12-26 14:38 | P.HP_ITS ---
Providers/Chief Complaint 2 Primary Care Provider: Vee Santos MD Chief Complaint: WEAKNESS History of Present Illness Black Smith is a 68 year old male With past medical history of smoking, chronic back pain, hyperlipidemia, diverticulitis presented to the hospital today with complaint of fever and chills that started 5 days ago on Saturday. He also had some chest pain upon deep breathing and said the pain lasted a few days but now has subsided. It was a sharp pain as he describes it. Also had diarrhea 2-3 times a day which was completely watery however yesterday only had 1 bowel movement and today has not had any bowel movement so far. He says he feels weak however denies lightheadedness, dizziness, nausea, vomiting or any other symptoms at this time. Denies eating canned foods. Denies eating out at a restaurant. Mom does smoke 1 pack/day, declines a nicotine patch at this time. This morning checked his temperature and it was 102.9 with a forehead sensor thermometer. However patient denied that he had a fever. He says he feels fine however does have weakness and mainly he came to the hospital because his forced him to. Endorses a cough which believes is new for him but he is not expectorating any contents. ED course: 135/77, saturating 98% on room air, respirate 16, pulse 78, temperature 98.1. Labs show WBC 11.64, hemoglobin 17, sodium 135, lactic acid 1.7, total bilirubin 1.5, urinalysis shows 1+ protein, 3+ blood, 1+ bilirubin, 2+ leukocyte esterase, 40-55 WBCs, 2+ bacteria, 2+ mucus. Patient does have a history of microscopic hematuria. CT abdomen pelvis done in ER shows the following 1. Displacement of the cecum into the mid abdomen is new from previous suspicious for early cecal volvulus. However, no evidence of significant bowel wall thickening or pneumatosis. Area of tethering seen on image 56 series 4. 2. Fluid distended ileal loops of enhancing small bowel in the RIGHT lower quadrant suspicious for early or developing partial obstruction. No pneumatosis or free air. 3. Sigmoid diverticulosis. No evidence of acute diverticulitis. 4. Enlarged enhancing nodular prostate appears progressed compared to previous. Evidence of bladder outlet obstruction. Recommend correlation PSA. Findings suspicious for neoplasia. Medications/Allergies Home Medications Medication Instructions Recorded Confirmed Last Taken Type acetaminophen 500 mg tablet 500 mg PO Q6H PRN Pain 10/15/22 12/26/23 Unknown History (Tylenol Extra Strength) acetaminophen 300 mg-codeine 15 mg 1 tab PO BID PRN pain #30 tabs 03/07/23 12/26/23 Unknown Rx tablet flash glucose scanning reader #1 ea 08/07/23 12/26/23 Unknown Rx (FreeStyle Michael 2 [place]) flash glucose sensor (FreeStyle #2 ea 08/07/23 12/26/23 Unknown Rx Michael 2 Sensor kit) ibuprofen 800 mg tablet 800 mg PO Q8H PRN pain #30 tabs 11/07/23 12/26/23 12/26/23 Rx doxylamine-dextromethorphan 6.25 15 ml PO Q4H PRN Sleep 12/26/23 12/26/23 12/25/23 History mg-15 mg/15 mL oral solution (Vicks NyQuil Cough) fluticasone propionate 50 2 spray intranasal DAILY PRN 12/26/23 12/26/23 Unknown History mcg/actuation nasal Allergy Symptoms spray,suspension (Flonase Allergy Relief) tizanidine 4 mg tablet 4 mg PO Q8H 12/26/23 12/26/23 Unknown History Allergies Allergy/AdvReac Type Severity Reaction Status Date / Time No Known Allergies Allergy Verified 10/24/23 07:33 PFSH Acute 2 PFSH: Medical History Asymptomatic microscopic hematuria Tobacco use Seasonal allergies Chronic back pain Hyperlipidemia History of diverticulitis Surgical History History of cholecystectomy History of back surgery x 5 History of carpal tunnel release of both wrists Family History Father , IN HIS 80'S Diabetes Cancer colon Mother , IN HER 80'S Dementia Cancer brain tumor Denies family history of CAD (coronary artery disease) Chronic kidney disease (CKD) Family history of premature coronary artery disease Hypertension Stroke Social History Smoking and tobacco/nicotine status: current every day tobacco/nicotine user cigarettes Packs smoked per day: 1 [ Other cigarette details: started smoking at 20] Quit status (tobacco/nicotine): not considering quitting Alcohol intake: current Alcohol intake frequency: holidays/special occasions only Substance/Drug Use: never Household members: spouse Marital status: service: Yes (1 year) status: Discharged branch: [employer] Current occupational status: retired Vitals/I&O/Wt Last Vital Signs Temp 98.1 F 12/26/23 12:00 Pulse 75 12/26/23 14:00 Resp 16 12/26/23 13:00 BP 129/83 12/26/23 14:00 Pulse Ox 91 12/26/23 14:00 O2 Del Method Room Air 12/26/23 13:00 12/25/23 12/26/23 12/26/23 22:59 06:59 14:59 Intake Total 1050 / 1050 Balance 1050 / 1050 Weight last 48 hrs Weight 83.461 kg Physical Exam 2 Narrative: General: Alert oriented x3, patient seen sitting up in bed cracking jokes appearing comfortable. HEENT: Normocephalic, atraumatic, EOMI, breathing room air. Cardio: Regular rate rhythm, normal S1-S2 Respiratory: Good bilateral air entry, no wheezes no rhonchi appreciated GI: Abdomen soft, nontender, nondistended, bowel sounds + Behavior: Appropriate and cooperative Extremities: No edema, within normal limits Data 12/27/23 05:39 12/27/23 05:39 Micro: Microbiology 12/26/23 10:52 Blood Culture - Preliminary Blood SPECIMEN COLLECTED 12/26/23 10:56 Blood Culture - Preliminary Blood SPECIMEN COLLECTED A&P Assessment and plan (1) Hyperlipidemia: (2) Asymptomatic microscopic hematuria: (3) UTI (urinary tract infection): (4) Chronic back pain: (5) Generalized weakness: (6) Dizziness: (7) Tobacco use: (8) Bladder outlet obstruction: (9) History of kidney stones: (10) Enlarged prostate: (11) Dehydration: (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 Check urine culture ? Check blood cultures ? Due to enlarging prostate and evidence of bladder outlet obstruction I would place a Barrera catheter and discharge patient with Barrera catheter and to follow- up with urology. Patient has seen Dr. Sidhu in the past. ? Check PSA level ? Check CBC BMP in a.m. #Weakness #Diarrhea #Dehydration #Displacement of cecum into midabdomen, suspicion of early cecal volvulus #Fluid distended ileal loops suspicious for early or developing small bowel obstruction ?Diarrhea seems to be resolving as per the patient ? Weakness most likely secondary to dehydration ? After receiving IV fluids patient states he is already feeling better. ? I will continue him on normal saline at this time ? Check stool for ova parasite screen ? Check lactoferrin ? Check C. difficile although my suspicion is low for that ? Check bacterial stool culture -Patient's abdominal exam is benign at this time. He is having bowel movements and passing gas. I doubt this is a true small bowel obstruction however possible developing volvulus is not excluded at this time. ? Will keep patient n.p.o. till further notice and obtain a general surgery consult for opinion. ? Consult general surgery. Discussed with Dr. Becerril. #Smoker -Declined nicotine patch at this time Full code DVT prophylaxis: Heparin SQ twice daily Attestations 2 Medical Necessity Statement*: Will cross greater than 2 midnight stay for UTI, fever, weakness. 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
[2023-12-26] MEDS: pantoprazole 40 mg SDV IVP (15:06)
[2023-12-26] MEDS: heparin 5,000 unit/mL INJ 1 mL 5000 UNIT SUBCUT (15:07)
[2023-12-26] MEDS: sodium chloride 0.9% 1,000 ML 75 ML IV (15:09)
[2023-12-26 15:25] LABS: Procalcitonin 0.27 ng/mL (0-0.5)
--- NOTE | 2023-12-26 18:31 | P.CONIM_ITS ---
Providers/Reason For Consult 2 Consulting Physician/Specialty*: Dr. Andreas Becerril, DO/General surgery Reason for Consult*: Abdominal pain Attending Physician: Mckenna Lomax MD Primary Care Provider: Vee Santos MD History of Present Illness History of Present Illness Black Simth is a 68 year old male who presented to the hospital with a 4-day history of shaking fever and chills. He reports that he also had an episode 3 days ago where he had some diffuse abdominal pain. The pain was intermittent and crampy and did not radiate. Nothing made his pain better or worse. He denies any nausea or vomiting. Denies any hematochezia, melena, diarrhea or constipation. His last colonoscopy was a year ago and was reportedly within normal limits. He was found to have a UTI. A CT of his abdomen pelvis showed a fluid-filled ileus indicative of possible early partial small bowel obstruction along with his cecum being displaced somewhat into the mid abdomen without pneumatosis or obvious signs of obstruction. He reports he is currently pain- free Review of Systems 2 General: Reports: 10 or more systems reviewed and unremarkable except in HPI and below Medications/Allergies Home Medications Medication Instructions Recorded Confirmed Last Taken Type acetaminophen 500 mg tablet 500 mg PO Q6H PRN Pain 10/15/22 12/26/23 Unknown History (Tylenol Extra Strength) acetaminophen 300 mg-codeine 15 mg 1 tab PO BID PRN pain #30 tabs 03/07/23 12/26/23 Unknown Rx tablet flash glucose scanning reader #1 ea 08/07/23 12/26/23 Unknown Rx (FreeStyle Michael 2 [place]) flash glucose sensor (FreeStyle #2 ea 08/07/23 12/26/23 Unknown Rx Michael 2 Sensor kit) ibuprofen 800 mg tablet 800 mg PO Q8H PRN pain #30 tabs 11/07/23 12/26/23 12/26/23 Rx doxylamine-dextromethorphan 6.25 15 ml PO Q4H PRN Sleep 12/26/23 12/26/23 12/25/23 History mg-15 mg/15 mL oral solution (Vicks NyQuil Cough) fluticasone propionate 50 2 spray intranasal DAILY PRN 12/26/23 12/26/23 Unknown History mcg/actuation nasal Allergy Symptoms spray,suspension (Flonase Allergy Relief) tizanidine 4 mg tablet 4 mg PO Q8H 12/26/23 12/26/23 Unknown History Allergies Allergy/AdvReac Type Severity Reaction Status Date / Time No Known Allergies Allergy Verified 10/24/23 07:33 Current Medications Generic Name Dose Route Start Last Admin Trade Name Freq PRN Reason Stop Dose Admin Heparin Sodium (Porcine) 5,000 unit 12/26/23 14:45 12/26/23 15:07 Heparin 5,000 Unit/Ml Inj 1 Ml SUBCUT 5,000 unit Q12H JACKELINE Administration Sodium Chloride 1,000 mls @ 75 mls/hr 12/26/23 14:45 12/26/23 15:09 Sodium Chloride 0.9% IV 75 mls/hr .[id number] JACKELINE Administration Pantoprazole Sodium 40 mg 12/26/23 14:45 12/26/23 15:06 Pantoprazole 40 Mg Sdv IVP 40 mg Q24H JACKELINE Administration PFSH Acute 2 PFSH: Medical History Asymptomatic microscopic hematuria Tobacco use Seasonal allergies Chronic back pain Hyperlipidemia History of diverticulitis Surgical History History of cholecystectomy History of back surgery x 5 History of carpal tunnel release of both wrists Family History Father , IN HIS 80'S Diabetes Cancer colon Mother , IN HER 80'S Dementia Cancer brain tumor Denies family history of CAD (coronary artery disease) Chronic kidney disease (CKD) Family history of premature coronary artery disease Hypertension Stroke Social History Smoking and tobacco/nicotine status: current every day tobacco/nicotine user cigarettes Packs smoked per day: 1 [ Other cigarette details: started smoking at 20] Quit status (tobacco/nicotine): not considering quitting Alcohol intake: current Alcohol intake frequency: holidays/special occasions only Substance/Drug Use: never Household members: spouse Marital status: service: Yes (1 year) status: Discharged branch: [employer] Current occupational status: retired Vitals/I&O/Wt Last Vital Signs Temp 98.1 F 12/26/23 16:00 Pulse 73 12/26/23 16:00 Resp 16 03/28/24 16:00 BP 146/88 12/26/23 16:00 Pulse Ox 94 12/26/23 16:00 O2 Del Method Room Air 12/26/23 16:49 12/26/23 12/26/23 12/26/23 06:59 14:59 22:59 Intake Total 1050 / 1050 Balance 1050 / 1050 Weight last 48 hrs Weight 174 lb 5 oz Weight 184 lb Physical Exam 2 Narrative: General : Patient is well developed , no acute distress, oriented x3 Head : Normal cephalic, a-traumatic. Ears : Pinnae and external canal are normal. Hearing is normal. Eyes : PERRLA, Sclera and injection are normal. No conjunctival discharge. Nose : Mucous membranes are without erythema. Throat : buccal mucosa is normal, gums are without significant recession or hypertrophy. Lungs : Equal chest rise bilaterally, no use of accessory muscles, trachea is midline. Cor : Rate and rhythm are normal. Abdomen : Soft, ND, NT, no g/r/m Extremities : No edema, no cyanosis or clubbing, dorsalis pedis pulses are present bilaterally, non-tender to palpation of calves. Upper extremities are normal bilaterally. Back : non-tender to palpation, no CVA tenderness. Neuro : CN II - XII intact, Upper and lower extremities have equal and full strength Data 12/26/23 10:52 12/26/23 10:52 Micro: Microbiology 12/26/23 10:52 Blood Culture - Preliminary Blood SPECIMEN COLLECTED 12/26/23 10:56 Blood Culture - Preliminary Blood SPECIMEN COLLECTED A&P Assessment and plan (1) Abdominal pain: (2) UTI (urinary tract infection): Plan He does not have any current signs of obstruction. The findings in the cecum on CT may be transient but do not seem to be causing any problems at this time. Full liquid diet. Advance as tolerated. No surgical intervention acutely. Medical management per hospitalist Coding Level of Care Code 43401 Diagnoses Abdominal pain R10.9 UTI (urinary tract infection) N39.0
[2023-12-27] VITALS (9 sets, daily range): BP systolic 125–157; BP diastolic 74–87; PULSE 67–101; RESP 15–19; TEMP 36.7–37.4; O2SAT 92–96
[2023-12-27] MEDS: heparin 5,000 unit/mL INJ 1 mL 5000 UNIT SUBCUT ×2 (02:09→14:09)
[2023-12-27] MEDS: sodium chloride 0.9% 1,000 ML 75 ML IV ×2 (03:13→17:04)
[2023-12-27] MEDS: piperacillin-tazobactam 3.375 GM in sodium chloride 0.9% (plus) 50 ML IV ×3 (05:33→21:19)
[2023-12-27 05:55] LABS: Basophils # 0.1 10^3/uL (0.0-0.1); Basophils % 0.8 %; Eosinophils # 0.2 10^3/uL (0.0-0.8); Eosinophils % 2.8 %; Hematocrit 42.8 % (37-53); Lymphocytes # 1.2 10^3/uL (0.8-4.8); Lymphocytes % 16.9 %; Mean Corpuscular HGB Conc 33.9 g/dL (30-55); Mean Corpuscular Hemoglobin 30.9 pg (27-33); Mean Corpuscular Volume 91.1 fl (82-101); Mean Platelet Volume 8.7 fL (7.4-10.4); Monocytes # 0.6 10^3/uL (0.2-0.9); Monocytes % 8.9 %; Neutrophils # 4.99 10^3/uL (1.8-7.7); Neutrophils % 70.2 %; Nucleated Red Blood Cells % 0 %; Platelet Count 261 10^3/cmm (157-399); Red Cell Distribution Width 12.8 % (12.1-15.1); White Blood Count 7.11 10^3/uL (3.29-11.43)
[2023-12-27 06:08] LABS: INR 1.02 (0.8-1.2)
[2023-12-27 06:24] LABS: Alanine Aminotransferase 18 U/L (0-41); Albumin Level 3.3 g/dL (3.5-5.2); Alkaline Phosphatase 59 U/L (40-130); Anion Gap 14.3 (5-19); Aspartate Amino Transferase 16 U/L (0-40); Blood Urea Nitrogen 9 mg/dL (8-23); Calcium 8.1 mg/dL (8.5-10.5); Carbon Dioxide 21 mmol/L (22-29); Chloride 103 mmol/L (98-107); Creatinine Clr Calc Pharmacy 69.2332; Globulin 2.9 g/dL (1.3-4.6); Glomerular Filtration Rate 74.8 mL/min (90-130); Glucose 147 mg/dL (65-115); Magnesium 2.1 mg/dL (1.7-2.3); Osmolality Calculated 281 mOsm/kg (285-295); Potassium 3.3 mmol/L (3.5-5.1); Sodium 135 mmol/L (136-145); Total Bilirubin 0.8 mg/dL (0.15-1.2); Total Protein 6.2 g/dL (6.6-8.7)
--- NOTE | 2023-12-27 09:15 | CTR_ITS ---
PROCEDURE INFORMATION: Exam: CT Abdomen And Pelvis Without Contrast Exam date and time: 12/27/2023 10:39 AM Age: 68 years old Clinical indication: Other: Blood in urine; Prior surgery; Surgery date: 6+ months; Surgery type: Gb; Additional info: Microscopic hematuria TECHNIQUE: Imaging protocol: Computed tomography of the abdomen and pelvis without contrast. Radiation optimization: All CT scans at this facility use at least one of these dose optimization techniques: automated exposure control; mA and/or kV adjustment per patient size (includes targeted exams where dose is matched to clinical indication); or iterative reconstruction. COMPARISON: CT abdomen pelvis w con* [id number] 12/26/2023 12:09 PM RADIATION DOSE METRICS: Total DLP (mGy-cm): 891.67 FINDINGS: Limitations: Images degraded by artifact from metallic hardware of spine, lumbosacral region. Lungs: Slight probable atelectasis and/or fibrosis portions of lung bases bilaterally. Coronary arteries: Coronary artery calcifications. Liver: Noncontrasted liver unremarkable. Gallbladder and bile ducts: Clips project gallbladder fossa. No bile duct dilatation seen. Pancreas: Noncontrasted pancreas unremarkable. Spleen: Noncontrasted spleen unremarkable. Adrenal glands: Noncontrasted adrenals unremarkable. Kidneys and ureters: No calcific stone seen visualized portions kidneys, ureters bilaterally nor urinary bladder. No dilation seen of visualized portions renal collecting systems, ureters bilaterally. Minimal perinephric stranding bilaterally nonspecific. Stomach and bowel: Possible duodenal loop diverticulum. Stomach appears mostly empty, decompressed. Diverticula of colon without current radiographic evidence of acute diverticulitis. Bowel pattern appears nonobstructive. Appendix: 3-4 mm calcific density of the appendix, possibly appendicolith. Otherwise, no acute appendicitis seen. Intraperitoneal space: No free intraperitoneal air and no free abdominal or pelvic fluid collection seen. Vasculature: Atherosclerotic disease. No aneurysm seen of abdominal aorta. Lymph nodes: Scattered small lymph nodes, nonspecific. Urinary bladder: Urinary bladder appears mostly empty, decompressed. Subtle haziness, stranding of fat surrounding the urinary bladder. Correlate for inflammation, cystitis or other process. Reproductive: Prostate appears enlarged, with slightly lobular or nodular configuration with slight surrounding haziness, stranding. Noncontrasted seminal vesicles unremarkable. Bones/joints: Postoperative changes, degenerative changes spine. Soft tissues: Tiny fat containing umbilical/paraumbilical hernia. Perhaps tiny fat containing inguinal hernias, right greater than left. Stranding, gas of subcutaneous anterior abdominal wall to the right of midline, possibly from injection. CT/CT kidney stone [id number] IMPRESSION: 1. Urinary bladder appears mostly empty, decompressed. Subtle haziness, stranding of fat surrounding the urinary bladder. Correlate for inflammation, cystitis or other process. 2. Prostate appears enlarged, with slightly lobular or nodular configuration with slight surrounding haziness, stranding. Correlate for prostatitis or other process. 3. No calcific stone seen visualized portions kidneys, ureters bilaterally nor urinary bladder. No dilation seen of visualized portions renal collecting systems, ureters bilaterally. Minimal perinephric stranding bilaterally nonspecific. 4. Diverticula of colon without current radiographic evidence of acute diverticulitis. 5. Please see body of report for findings.
--- NOTE | 2023-12-27 12:37 | P.PN_ITS ---
Subjective 2 Subjective: discussed findings of CT abdomen and enlargement of prostate with patient. Discussed with him my suspicion of bladder outlet obstruction causing urinary retention and therefore UTI. Also discussed with him regarding his history of kidney stone and his current microscopic hematuria. Discussed with him the possibility of leaving with the Barrera versus intermittent straight catheterization. ? We will be checking postvoid residual volume today to decide on the above. Patient in agreement. Patient in agreement to see urology as an outpatient after discharge He says he feels better and would like to leave the hospital however understands that he has a urine culture that he is waiting on. Vitals/I&O/Wt Last Vital Signs Temp 98.3 F 12/27/23 08:00 Pulse 67 12/27/23 08:00 Resp 16 12/27/23 08:00 BP 125/74 12/27/23 08:00 Pulse Ox 94 12/27/23 08:00 O2 Del Method Room Air 12/27/23 04:18 12/26/23 12/27/23 12/27/23 22:59 06:59 14:59 Intake Total 50 / 1100 1399 / 2499 530 / 530 Output Total 200 / 200 Balance -150 / 900 1399 / 2299 530 / 530 Weight last 48 hrs Weight 79.605 kg Weight 79.067 kg Weight 83.461 kg Physical Exam 2 Narrative: General: Alert oriented x3, patient seen sitting up in bed, at bedside. HEENT: Normocephalic, atraumatic, EOMI, breathing room air. Cardio: Regular rate rhythm, normal S1-S2 Respiratory: Good bilateral air entry, no wheezes no rhonchi appreciated GI: Abdomen soft, nontender, nondistended, bowel sounds + Behavior: Appropriate and cooperative Extremities: No edema, within normal limits Data 12/27/23 05:39 12/27/23 05:39 Micro: Microbiology 12/27/23 09:39 Stool Lactoferrin - Final Stool Occult Blood (FIT) - Final 12/26/23 10:56 Blood Culture - Preliminary Blood NEGATIVE TO DATE 12/26/23 10:52 Blood Culture - Preliminary Blood NEGATIVE TO DATE 12/26/23 11:25 Urine Culture - Preliminary Urine,Clean Catch Gram Negative Rods A&P Assessment and plan (1) Hyperlipidemia: (2) Asymptomatic microscopic hematuria: (3) UTI (urinary tract infection): (4) Chronic back pain: (5) Generalized weakness: (6) Dizziness: (7) Tobacco use: (8) Bladder outlet obstruction: (9) History of kidney stones: (10) Enlarged prostate: (11) Dehydration: (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 Check urine culture, growing gm neg rods ? Check blood cultures ? Due to enlarging prostate and evidence of bladder outlet obstruction, will check postvoid residual volumes. If patient is does have urinary retention due to bladder outlet obstruction we will send patient home with intermittent straight cath. Patient is reluctant to be on a Barrera. ? Check PSA level ? Check CBC BMP in a.m. - Check ct stone protocol #Weakness #Diarrhea #Dehydration #Displacement of cecum into midabdomen, suspicion of early cecal volvulus #Fluid distended ileal loops suspicious for early or developing small bowel obstruction ?Diarrhea seems to be resolving as per the patient ? Weakness most likely secondary to dehydration ? After receiving IV fluids patient states he is already feeling better. ? I will continue him on normal saline at this time ? Check stool for ova parasite screen - pending ? Check lactoferrin - pending ? Check C. difficile although my suspicion is low for that - pending ? Check bacterial stool culture - pending -Patient's abdominal exam is benign at this time. He is having bowel movements and passing gas. I doubt this is a true small bowel obstruction however possible developing volvulus is not excluded at this time. ? Continue full liquid and advance per gen surgery - Recommendations appreciated. 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
[2023-12-27] MEDS: pantoprazole 40 mg SDV IVP (14:08)
--- NOTE | 2023-12-27 14:31 | PC.SOCIAL ---
IMM Update pg 2 of IMM updated and reviewed w/ patient. Copy provided and copy dated, initialed and placed in chart.
--- NOTE | 2023-12-27 19:29 | P.PN_ITS ---
Subjective 2 Subjective: Patient seen and examined. Denies any abdominal pain nausea or emesis. Passing flatus. Vitals/I&O/Wt Last Vital Signs Temp 98.4 F 12/27/23 16:00 Pulse 67 12/27/23 16:00 Resp 15 12/27/23 16:00 BP 145/86 12/27/23 16:00 Pulse Ox 92 12/27/23 16:00 O2 Del Method Room Air 12/27/23 14:59 12/27/23 12/27/23 12/27/23 06:59 14:59 22:59 Intake Total 1399 / 2499 530 / 530 1050 / 1580 Output Total 475 / 475 300 / 775 Balance 1399 / 2299 55 / 55 750 / 805 Weight last 48 hrs Weight 175 lb 8 oz Weight 174 lb 5 oz Weight 184 lb Physical Exam 2 Narrative: General: No acute distress, awake alert and oriented x 3 Abdomen: Soft, nontender, nondistended, no guarding rebound or masses Data 12/27/23 05:39 12/27/23 05:39 Micro: Microbiology 12/27/23 09:39 Stool Lactoferrin - Final Stool Occult Blood (FIT) - Final 12/26/23 10:56 Blood Culture - Preliminary Blood NEGATIVE TO DATE 12/26/23 10:52 Blood Culture - Preliminary Blood NEGATIVE TO DATE 12/26/23 11:25 Urine Culture - Preliminary Urine,Clean Catch Gram Negative Rods A&P Assessment and plan (1) Abdominal pain: Plan Abdominal pain has resolved. There is no concern for cecal volvulus at this time. Advance to regular diet No acute surgical intervention Medical management per hospitalist Attestations 2 Medical Necessity Statement*: Per primary Coding Level of Care Code 03052 Diagnoses Abdominal pain R10.9
[2023-12-27] MEDS: acetaminophen 325 mg Tablet 650 MG PO (20:55)
[2023-12-28] MEDS: heparin 5,000 unit/mL INJ 1 mL 5000 UNIT SUBCUT (02:31)
[2023-12-28 03:09] LABS: Anion Gap 12.8 (5-19); Blood Urea Nitrogen 6 mg/dL (8-23); Calcium 8.3 mg/dL (8.5-10.5); Carbon Dioxide 24 mmol/L (22-29); Chloride 107 mmol/L (98-107); Creatinine Clr Calc Pharmacy 62.9392; Glucose 103 mg/dL (65-115); Osmolality Calculated 288 mOsm/kg (285-295); Potassium 3.8 mmol/L (3.5-5.1); Sodium 140 mmol/L (136-145)
[2023-12-28 03:57] VITALS: BP 136/81; PULSE 67; RESP 16; TEMP 36.6; O2SAT 94
[2023-12-28] MEDS: piperacillin-tazobactam 3.375 GM in sodium chloride 0.9% (plus) 50 ML IV (05:46)
[2023-12-28 06:00] VITALS: PULSE 65
[2023-12-28 08:00] VITALS: BP 156/89; PULSE 80; RESP 14; TEMP 36.6; O2SAT 94
[2023-12-28] MEDS: sodium chloride 0.9% 1,000 ML 75 ML IV (08:59)
--- NOTE | 2023-12-28 09:32 | P.PN_ITS ---
Subjective 2 Subjective: Patient seen and examined. Tolerating regular diet. Denies any abdominal pain. Positive flatus Vitals/I&O/Wt Last Vital Signs Temp 97.8 F 12/28/23 08:00 Pulse 80 12/28/23 08:00 Resp 14 12/28/23 08:00 BP 156/89 12/28/23 08:00 Pulse Ox 94 12/28/23 08:00 O2 Del Method Room Air 12/28/23 08:48 12/27/23 12/28/23 12/28/23 22:59 06:59 14:59 Intake Total 1290 / 1820 1530 / 3350 0 / 0 Output Total 300 / 775 Balance 990 / 1045 1530 / 2575 0 / 0 Weight last 48 hrs Weight 190 lb 3.2 oz Weight 175 lb 8 oz Weight 174 lb 5 oz Weight 184 lb Physical Exam 2 Narrative: General: No acute distress, awake alert and oriented x 3 Abdomen: Soft, nontender, nondistended, no guarding rebound or masses Data 12/27/23 05:39 12/28/23 02:10 Micro: Microbiology 12/26/23 11:25 Urine Culture - Final Urine,Clean Catch Escherichia coli 12/27/23 09:39 Stool Lactoferrin - Final Stool Occult Blood (FIT) - Final 12/26/23 10:56 Blood Culture - Preliminary Blood NEGATIVE TO DATE 12/26/23 10:52 Blood Culture - Preliminary Blood NEGATIVE TO DATE A&P Assessment and plan (1) Abdominal pain: Plan Abdominal pain has resolved. There is no concern for cecal volvulus at this time. Regular diet No acute surgical intervention Medical management per hospitalist General surgery will sign off. Please reconsult if the need arises Attestations 2 Medical Necessity Statement*: Per primary Coding Level of Care Code 78013 Diagnoses Abdominal pain R10.9
--- NOTE | 2023-12-28 09:53 | PM.DCS ---
Discharge Providers Date of Admission: 12/26/23 16:16 Date of Discharge: December 28, 2023 Attending Provider at Admission: Mckenna Lomax MD Attending Provider at Discharge: Mckenna Lomax MD Primary Care Provider: Vee Santos MD Diagnoses at Discharge Discharge Diagnosis (1) Abdominal pain: Status: Acute Reason for Visit Reason for Visit: WEAKNESS Hospital Course Hospital Course Initially admitted for fever. Diagnosed with UTI. Urine culture positive for E. coli pansensitive. Was given Zosyn during hospitalization and will be discharged home on cefuroxime x 7 days. Also reported diarrhea at admission which self resolved. Cultures have been obtained pending however most are negative. Lactoferrin also negative. There was a question of partial bowel obstruction and early cecal volvulus. General surgery was consulted however this was not concerning at this time. Patient was kept on full liquid diet and transition to regular diet eventually. He has been doing well from that aspect. Also there was enlarging prostate and evidence of bladder outlet obstruction on CT. Postvoid residuals were checked and patient is not having urinary retention. Initially I did discuss with them regarding straight cath and being on a Barrera however that would not be needed at this point. Patient will need to be seen by urology. He will be referred to [facility] at discharge. Patient in agreement. He was also treated for dehydration and weakness with IV fluids secondary to diarrhea that he had for 3 to 4 days prior to hospitalization. Please see H&P. Patient to discharge home in stable condition at this time. Physical Exam Narrative: General: Alert oriented x3, patient seen sitting up in bed, HEENT: Normocephalic, atraumatic, EOMI, breathing room air. Cardio: Regular rate rhythm, normal S1-S2 Respiratory: Good bilateral air entry, no wheezes no rhonchi appreciated GI: Abdomen soft, nontender, nondistended, bowel sounds + Behavior: Appropriate and cooperative Extremities: No edema, within normal limits Discharge Data Studies Completed and Pending Completed Studies During Hospitalization Category Date Time Status CT abdomen pelvis w con* [id number] Stat Cat Scan 12/26/23 11:[address] kidney stone [id number] Urgent Cat Scan 12/27/23 09:15 Completed XR chest 1V portable [id number] Stat Exams 12/26/23 10:16 Completed Pending at discharge Category Date Time Status Blood Culture Stat Lab 12/26/23 10:52 Results C.Diff PCR (Lab) Routine Lab 12/28/23 09:40 Received Lactoferrin Routine Lab 12/28/23 09:40 Received OVA and Parasites, Conc and PE Routine Lab 12/26/23 10:22 Received OVA and Parasites, Conc and PE Routine Lab 12/28/23 09:40 Received Salmonella / Shigella / Campy Routine Lab 12/26/23 10:22 Received Radiology Impressions Abdomen/Pelvis CT 12/27/23 09:15 IMPRESSION: 1. Urinary bladder appears mostly empty, decompressed. Subtle haziness, stranding of fat surrounding the urinary bladder. Correlate for inflammation, cystitis or other process. 2. Prostate appears enlarged, with slightly lobular or nodular configuration with slight surrounding haziness, stranding. Correlate for prostatitis or other process. 3. No calcific stone seen visualized portions kidneys, ureters bilaterally nor urinary bladder. No dilation seen of visualized portions renal collecting systems, ureters bilaterally. Minimal perinephric stranding bilaterally nonspecific. 4. Diverticula of colon without current radiographic evidence of acute diverticulitis. 5. Please see body of report for findings. Laboratory Results WBC 7.11 10^3/uL (3.29-11.43) 12/27/23 05:39 Corrected WBC Cancelled 12/26/23 09:56 RBC 4.70 10^6/uL (3.85-5.65) 12/27/23 05:39 Hgb 14.50 g/dL (11.27-16.99) 12/27/23 05:39 Hct 42.8 % (37-53) 12/27/23 05:39 MCV 91.1 fl (82-101) 12/27/23 05:39 MCH 30.9 pg (27-33) 12/27/23 05:39 MCHC 33.9 g/dL (30-55) 12/27/23 05:39 RDW 12.8 % (12.1-15.1) 12/27/23 05:39 Plt Count 261 10^3/cmm (157-399) 12/27/23 05:39 MPV 8.7 fL (7.4-10.4) 12/27/23 05:39 Gran % Cancelled 12/26/23 09:56 Neut % (Auto) 70.2 % 12/27/23 05:39 Lymph % (Auto) 16.9 % 12/27/23 05:39 [place] % (Auto) 8.9 % 12/27/23 05:39 Eos % (Auto) 2.8 % 12/27/23 05:39 Baso % (Auto) 0.8 % 12/27/23 05:39 Neut # (Auto) 4.99 10^3/uL (1.8-7.7) 12/27/23 05:39 Lymph # (Auto) 1.2 10^3/uL (0.8-4.8) 12/27/23 05:39 [place] # (Auto) 0.6 10^3/uL (0.2-0.9) 12/27/23 05:39 Eos # (Auto) 0.2 10^3/uL (0.0-0.8) 12/27/23 05:39 Baso # (Auto) 0.1 10^3/uL (0.0-0.1) 12/27/23 05:39 Absolute Gran (auto) Cancelled 12/26/23 09:56 Nucleated RBC % (auto) 0 % 12/27/23 05:39 Nucleated RBCs # 0.0 /100WBC 12/27/23 05:39 PT 13.70 SECONDS (12.1-14.9) 12/27/23 05:39 INR 1.02 (0.8-1.2) 12/27/23 05:39 Sodium 140 mmol/L (136-145) 12/28/23 02:10 Potassium 3.8 mmol/L (3.5-5.1) 12/28/23 02:10 Chloride 107 mmol/L (98-107) 12/28/23 02:10 Carbon Dioxide 24 mmol/L (22-29) 12/28/23 02:10 Anion Gap 12.8 (5-19) 12/28/23 02:10 BUN 6 mg/dL (8-23) L 12/28/23 02:10 Creatinine 1.1 mg/dL (0.7-1.2) 12/28/23 02:10 GFR Calculation 67.0 mL/min (90-130) L 12/28/23 02:10 Glucose 103 mg/dL (65-115) 12/28/23 02:10 POC Glucose 97 mg/dL (70-110) 12/26/23 10:40 Calculated Osmolality 288 mOsm/kg (285-295) 12/28/23 02:10 Lactic Acid 1.7 mmol/L (0.5-2.2) 12/26/23 10:52 Calcium 8.3 mg/dL (8.5-10.5) L 12/28/23 02:10 Magnesium 2.1 mg/dL (1.7-2.3) 12/27/23 05:39 Total Bilirubin 0.8 mg/dL (0.15-1.2) 12/27/23 05:39 AST 16 U/L (0-40) 12/27/23 05:39 ALT 18 U/L (0-41) 12/27/23 05:39 Alkaline Phosphatase 59 U/L (40-130) 12/27/23 05:39 Total Protein 6.2 g/dL (6.6-8.7) L 12/27/23 05:39 Albumin 3.3 g/dL (3.5-5.2) L 12/27/23 05:39 Globulin 2.9 g/dL (1.3-4.6) 12/27/23 05:39 Lipase 34 U/L (13-60) 12/26/23 10:52 Procalcitonin 0.27 ng/mL (0-0.5) 12/26/23 10:52 TSH 1.00 uIU/mL (0.27-4.20) 12/26/23 10:52 Urine Color Yellow (Yellow) 12/26/23 11:25 Urine Appearance Sl hazy (CLEAR) A 12/26/23 11:25 Urine pH 5 (5-7) 12/26/23 11:25 Ur Specific [place] 1.010 (1.005-1.030) 12/26/23 11:25 Urine Protein 1+ (Negative) H 12/26/23 11:25 Urine Glucose (UA) Norm (Normal) 12/26/23 11:25 Urine Ketones 1+ (Negative) H 12/26/23 11:25 Urine Blood 3+ (Negative) H 12/26/23 11:25 Urine Nitrate Negative (Negative) 12/26/23 11:25 Urine Bilirubin 1+ (Negative) H 12/26/23 11:25 Urine Urobilinogen 4 mg/dL (Negative) H 12/26/23 11:25 Ur Leukocyte Esterase 2+ (Negative) H 12/26/23 11:25 Urine RBC 5-10 /hpf (0-2) H 12/26/23 11:25 Urine WBC 40-55 /hpf (0-5) H 12/26/23 11:25 Ur Squamous Epith Cells 0-4 /hpf (0-5) H 12/26/23 11:25 Ur Renal Epithelial Cell 0-4 /hpf 12/26/23 11:25 Amorphous Sediment Not Reportable 12/26/23 11:25 Urine Bacteria 2+ /hpf (NONE) H 12/26/23 11:25 Urine Mucus 2+ /hpf 12/26/23 11:25 Ur Oval Fat Bodies 2+ /hpf 12/26/23 11:25 C. difficile (PCR) Cancelled 12/27/23 09:39 Influenza Type A Ag Negative (Negative) 12/26/23 10:50 Influenza Type B Ag Negative (Negative) 12/26/23 10:50 SARS-CoV-2 Ag (Rapid) negative (Negative) 12/26/23 10:50 Vitals Last Vital Signs Temp 97.8 F 12/28/23 08:00 Pulse 80 12/28/23 08:00 Resp 14 12/28/23 08:00 BP 156/89 12/28/23 08:00 Pulse Ox 94 12/28/23 08:00 O2 Del Method Room Air 12/28/23 08:48 Discharge Plan Discharge Patient Disposition: Home Condition: Stable Prescriptions: New cefuroxime axetil 500 mg tablet 500 mg PO BID 7 Days Qty: 14 0RF Continued acetaminophen [Tylenol Extra Strength] 500 mg tablet 500 mg PO Q6H PRN (Reason: Pain) (DME) FreeStyle Michael 2 [place] Misc See Rx Instructions .MEDSUPPLY Qty: 1 0RF Rx Instructions: Use as directed to check blood sugar (DME) FreeStyle Michael 2 Sensor Kit See Rx Instructions .MEDSUPPLY Qty: 2 11RF Rx Instructions: Change every 14 days; Use as directed to check blood sugar acetaminophen-codeine 300-15 mg tablet 1 tab PO BID PRN (Reason: pain) Qty: 30 0RF ibuprofen 800 mg tablet 800 mg PO Q8H PRN (Reason: pain) Qty: 30 0RF Flonase Allergy Relief 50 mcg/actuation [place],Suspension 2 spray INTRANASAL DAILY PRN (Reason: Allergy Symptoms) Rx Instructions: administer into each nostril tizanidine 4 mg tablet 4 mg PO Q8H Vicks NyQuil Cough 6.25-15 mg/15 mL Solution 15 ml PO Q4H PRN (Reason: Sleep) Discharge Orders: Discharge Order (Routine); Ordered 12/28/23 Ordered By: Mckenna Lomax Referrals: Avi Plascencia [Referring] - 7-10 days (Enlarged prostate, cannot exclude neoplasm. Bladder outlet obstruction. We have notified your physician's clinic of the need for a follow-up appointment to be scheduled. If you have not heard from them within the next 2 business days, please call them directly. SENT REFERRAL FOR APPOINTMENT) Vee Santos MD [Primary Care Provider] - 1-3 days (We have notified your physician's clinic of the need for a follow-up appointment to be scheduled. If you have not heard from them within the next 2 business days, please call them directly. SENT REFERRAL FOR APPOINTMENT) Discharge Diet: Regular Discharge Activity: Resume usual activity Patient Instructions: Cefuroxime (By mouth) (Ceftin), Enlarged Prostate (BPH) (DC), Urinary Tract Infection in Men (DC), Opioid Safety Activity Restrictions/Additional Instructions: Please follow up with urology outpatient as discussed during your hospital stay. Your prostate needs further evaluation. Discharge Attestations Time Spent in Discharge Care*: greater than 30 min Quality Metrics Clinical Quality Measures [ No reported AMI, CVA or VTE this stay] Coding Level of Care Code Acute Code for Chg Fwd Diagnoses Abdominal pain R10.9
[2023-12-28 10:40] LABS: C.Diff PCR (Lab) NEGATIVE (Negative)
--- NOTE | 2023-12-28 10:59 | PC.NURSE ---
D/C pending transportation home. 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
== END 2023-12-28 11:11 | disposition home or self-care (01) | DRG 690 ==
LOC: ER 13:22 → MEDSURG 17:16
PROVIDERS: Admitting Provider Internal Medicine; Emergency Provider Emergency Medicine; PCP Family Medicine; Visit Provider Internal Medicine
DX: N39.0 Urinary tract infection, site not specified (principal); B96.20 Unspecified Escherichia coli [E. coli] as the cause of diseases classified elsewhere; R31.29 Other microscopic hematuria; F17.210 Nicotine dependence, cigarettes, uncomplicated; N40.0 Benign prostatic hyperplasia without lower urinary tract symptoms; N32.0 Bladder-neck obstruction; E86.0 Dehydration; R19.7 Diarrhea, unspecified; Z87.442 Personal history of urinary calculi; K57.30 Diverticulosis of large intestine without perforation or abscess without bleeding
CPT/HCPCS: 36415; 36416; 71045; 74176; 74177; 80048; 80053; 81001; 82274; 82962; 83605; 83630; 83690; 83735; 84145; 84443; 85025; 85610; 87040; 87045; 87077; 87086; 87177; 87186; 87209; 87426; 87427; 87449; 87493; 87804; 93005; 94664; 96365; 96372; 96375; 99285; C9113; J0696; J1644; J2543; J7030; Q9967

== ENCOUNTER → 2024-02-07 10:50 | Outpatient (BNVA) | payer MEDICARE, SELFPAY | PROVIDERS: PCP Family Medicine; Visit Provider Family Medicine | DX: N32.0 Bladder-neck obstruction (principal); N40.0 Benign prostatic hyperplasia without lower urinary tract symptoms | CPT/HCPCS: G0103 ==

== ENCOUNTER → 2024-02-14 09:21 | Outpatient (BNVA) | payer MEDICARE, SELFPAY | PROVIDERS: PCP Family Medicine; Visit Provider Family Medicine | DX: R00.2 Palpitations (principal) | CPT/HCPCS: 80053; 83735; 84443; 85025 ==

== ENCOUNTER 2024-02-17 08:32 | Outpatient (RCR) | payer MEDICARE, SELFPAY | END 2024-02-28 23:59 | disposition home or self-care (01) | LOC: SPT 08:32 | PROVIDERS: PCP Family Medicine; Visit Provider Family Medicine | DX: M48.02 Spinal stenosis, cervical region (principal) | CPT/HCPCS: 97161 ==

== ENCOUNTER → 2024-02-18 09:14 | Outpatient (BNVA) | payer MEDICARE, SELFPAY | PROVIDERS: PCP Family Medicine; Referring Provider Family Medicine; Visit Provider Internal Medicine Cardiovascular Disease | DX: R00.2 Palpitations (principal); I49.3 Ventricular premature depolarization | CPT/HCPCS: 93246 ==

== ENCOUNTER 2024-03-03 11:33 | Emergency (ER) | payer MEDICARE, SELFPAY ==
--- NOTE | 2024-03-03 11:34 | XRR_ITS ---
PROCEDURE INFORMATION: Exam: XR Chest Exam date and time: 03/03/2024 11:43 AM Age: 69 years old Clinical indication: Pain; Angina pectoris; Additional info: Cp TECHNIQUE: Imaging protocol: Radiologic exam of the chest. Views: 1 view. COMPARISON: CR XR chest 1V portable [id number] 12/26/2023 10:45 AM FINDINGS: Lungs: Unremarkable. No consolidation. Pleural spaces: Unremarkable. No pleural effusion. No pneumothorax. Heart/Mediastinum: Unremarkable. No cardiomegaly. Bones/joints: Unremarkable. XR/XR chest 1V portable [id number] IMPRESSION: No acute findings.
[2024-03-03 11:36] VITALS: BP 117/84; PULSE 92; RESP 16; TEMP 36.6; O2SAT 94; BMI 32.8
--- NOTE | 2024-03-03 11:40 | ECG_ITS ---
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 Measurements Intervals [place] Rate: 79 P: 40 MD: 172 QRS: 29 QRSD: 88 T: 52 QT: 349 QTc: 401 Interpretive Statements SINUS RHYTHM WITH MARKED SINUS ARRHYTHMIA NONSPECIFIC T-WAVE ABNORMALITY Compared to ECG 12/26/2023 10:38:17 No significant changes Electronically Signed On 03-03-2024 12:39:04 CDT by Ezequiel Colin M.D. [id number] f
--- NOTE | 2024-03-03 11:50 | ED_ITS ---
HPI - Chest Pain 2 General: Chief Complaint: Chest Pain Stated Complaint: Chest pain Time Seen by Provider: 03/03/24 11:34 Source: EMS Mode of arrival: EMS Limitations: no limitations History of Present Illness: 69-year-old male states roughly 2 hours ago started having some chest pain and palpitations while sitting on the toilet. He states like his heart was just beating hard and he is having a pressure type pain in the center of his chest. States that since resolved with nitro and aspirin denies any severe dyspnea denies any cough or fever denies any nausea or vomiting. Associated symptoms: Deny abdominal pain, dyspnea, fever(s), nausea or vomiting Review of Systems 2 Const: Denies: fever(s), chills, body aches or change in appetite ENMT: Denies: throat pain or dental pain Card: Reports: chest pain Resp: Denies: dyspnea GI: Denies: abdominal pain, nausea, vomiting or diarrhea : Denies: dysuria Musc: Denies: neck pain or back pain Skin/Breast: Denies: rash Neuro: Denies: headache(s) PFSH ED 2 PFSH: Medical History Asymptomatic microscopic hematuria Tobacco use Seasonal allergies Chronic back pain Hyperlipidemia History of diverticulitis Surgical History History of cholecystectomy History of back surgery x 5 History of carpal tunnel release of both wrists Family History Father , IN HIS 80'S Diabetes Cancer colon Mother , IN HER 80'S Dementia Cancer brain tumor Denies family history of CAD (coronary artery disease) Chronic kidney disease (CKD) Family history of premature coronary artery disease Hypertension Stroke Social History Smoking and tobacco/nicotine status: current every day tobacco/nicotine user cigarettes Packs smoked per day: 1 [ Other cigarette details: started smoking at 20] Quit status (tobacco/nicotine): not considering quitting Alcohol intake: current Alcohol intake frequency: holidays/special occasions only Substance/Drug Use: never Household members: spouse Marital status: service: Yes (1 year) status: Discharged branch: [employer] Current occupational status: retired Physical Exam 2 Const: COMMON NORMALS: no acute distress, patient oriented x3 and healthy appearing HENMT: COMMON NORMALS: normocephalic and atraumatic HEAD & SCALP: n ormocephalic and atraumatic Neck/C-Spine: COMMON NORMALS: full ROM and supple Chest: COMMONS NORMALS: normal inspection of the chest Resp: COMMON NORMALS: normal respiratory effort, No retractions, No use of accessory muscles and clear to auscultation bilaterally AUSCULTATION: clear to auscultation bilaterally Cardio: COMMON NORMALS: regular rate, regular rhythm and No murmurs present (Cardio) RATE: regular rate RHYTHM: regular rhythm Extremity: COMMON NORMALS: normal to inspection and full ROM Neuro: COMMON NORMALS: patient oriented x3, moves all extremities and no focal motor deficits Psych: COMMON NORMALS: mental status grossly normal, Normal thought process present and cooperative THOUGHT PROCESS: Normal thought process present Skin: COMMON NORMALS: no rashes or lesions noted and no wounds GENERAL SKIN EXAM: no rashes or lesions noted Course 2 Vital Signs: Vital signs: Vital Signs Temperature 97.9 F 03/03/24 11:36 Pulse Rate 67 03/03/24 12:30 Respiratory Rate 19 H 03/03/24 12:30 Blood Pressure 111/79 03/03/24 12:30 Pulse Oximetry 92 03/03/24 12:30 Oxygen Delivery Me thod Room Air 03/03/24 12:30 MDM - Chest Pain Medical Decision Making Patient presents with chest pain has been chest pain-free here he states he feels much improved his EKG his troponins here are normal he is wanting to go home I feel he is stable for discharge home he has no signs of ACS no signs of pulmonary embolism he is follow-up his PCP in 3 to 5 days he is return if worsening he understands agrees to the plan. Medical Records I reviewed the patient's medical records. Lab Data I reviewed the patient's lab results. 03/03/24 11:50 03/03/24 11:50 Radiology Impressions Chest X-Ray 03/03/24 11:34 IMPRESSION: No acute findings. Laboratory Results WBC 7.39 10^3/uL (3.29-11.43) 03/03/24 11:50 RBC 5.19 10^6/uL (3.85-5.65) 03/03/24 11:50 Hgb 16.10 g/dL (11.27-16.99) 03/03/24 11:50 Hct 46.7 % (37-53) 03/03/24 11:50 MCV 90.0 fl (82-101) 03/03/24 11:50 MCH 31.0 pg (27-33) 03/03/24 11:50 MCHC 34.5 g/dL (30-55) 03/03/24 11:50 RDW 13.2 % (12.1-15.1) 03/03/24 11:50 Plt Count 291 10^3/cmm (157-399) 03/03/24 11:50 MPV 9.0 fL (7.4-10.4) 03/03/24 11:50 Neut % (Auto) 64.2 % 03/03/24 11:50 Lymph % (Auto) 23.8 % 03/03/24 11:50 [place] % (Auto) 7.7 % 03/03/24 11:50 Eos % (Auto) 3.1 % 03/03/24 11:50 Baso % (Auto) 0.9 % 03/03/24 11:50 Neut # (Auto) 4.74 10^3/uL (1.8-7.7) 03/03/24 11:50 Lymph # (Auto) 1.8 10^3/uL (0.8-4.8) 03/03/24 11:50 [place] # (Auto) 0.6 10^3/uL (0.2-0.9) 03/03/24 11:50 Eos # (Auto) 0.2 10^3/uL (0.0-0.8) 03/03/24 11:50 Baso # (Auto) 0.1 10^3/uL (0.0-0.1) 03/03/24 11:50 Nucleated RBC % (auto) 0 % 03/03/24 11:50 Nucleated RBCs # 0.0 /100WBC 03/03/24 11:50 PT 12.80 SECONDS (12.1-14.9) 03/03/24 11:50 INR 0.94 (0.8-1.2) 03/03/24 11:50 Sodium 137 mmol/L (136-145) 03/03/24 11:50 Potassium 4.3 mmol/L (3.5-5.1) 03/03/24 11:50 Chloride 106 mmol/L (98-107) 03/03/24 11:50 Carbon Dioxide 20 mmol/L (22-29) L 03/03/24 11:50 Anion Gap 15.3 (5-19) 03/03/24 11:50 BUN 10 mg/dL (8-23) 03/03/24 11:50 Creatinine 1.1 mg/dL (0.7-1.2) 03/03/24 11:50 GFR Calculation 66.8 mL/min (90-130) L 03/03/24 11:50 Glucose 139 mg/dL (65-115) H 03/03/24 11:50 Calculated Osmolality 285 mOsm/kg (285-295) 03/03/24 11:50 Calcium 8.6 mg/dL (8.5-10.5) 03/03/24 11:50 Total Bilirubin 0.8 mg/dL (0.15-1.2) 03/03/24 11:50 AST 19 U/L (0-40) 03/03/24 11:50 ALT 20 U/L (0-41) 03/03/24 11:50 Alkaline Phosphatase 86 U/L (40-130) 03/03/24 11:50 Troponin T Baseline 14 ng/L (0-15) 03/03/24 11:50 Troponin T 120 Minute 13.92 ng/L (0-15) 03/03/24 13:44 Delta Troponin T -0.08 ABS# (0-10) L 03/03/24 13:44 Total Protein 6.7 g/dL (6.6-8.7) 03/03/24 11:50 Albumin 4.1 g/dL (3.5-5.2) 03/03/24 11:50 Globulin 2.6 g/dL (1.3-4.6) 03/03/24 11:50 All radiology interpretation(s) finalized by discharge EKG Data EKG 1: I personally reviewed and interpreted this EKG as follows: EKG interpretation date: 03/03/24 EKG interpretation time: 11:40 Interpretation: nsr hr [address] elevationqrs 88 qtc 383 Discharge Plan Discharge Patient Disposition: Home Clinical Impression: Chest pain Condition: Stable Prescriptions: No Action acetaminophen [Tylenol Extra Strength] 500 mg tablet 500 mg PO Q6H PRN (Reason: Pain) (DME) FreeStyle Michael 2 [place] Misc See Rx Instructions .MEDSUPPLY Qty: 1 0RF Rx Instructions: Use as directed to check blood sugar (DME) FreeStyle Michael 2 Sensor Kit See Rx Instructions .MEDSUPPLY Qty: 2 11RF Rx Instructions: Change every 14 days; Use as directed to check blood sugar acetaminophen-codeine 300-15 mg tablet 1 tab PO BID PRN (Reason: pain) Qty: 30 0RF ibuprofen 800 mg tablet 800 mg PO Q8H PRN (Reason: pain) Qty: 30 0RF atorvastatin 40 mg tablet 40 mg PO DAILY tamsulosin 0.4 mg capsule 0.4 mg PO QPM fluticasone propionate [Flonase Allergy Relief] 50 mcg/actuation [place],Suspension 2 spray INTRANASAL DAILY PRN (Reason: Allergy Symptoms) Rx Instructions: administer into each nostril tizanidine 4 mg tablet 4 mg PO Q8H PRN (Reason: MUSCLE SPASMS) Vicks NyQuil Cough 6.25-15 mg/15 mL Solution 15 ml PO Q4H PRN (Reason: Sleep) Discharge Orders: Discharge ED (Routine); Ordered 03/03/24 Ordered By: Jovon Abraham Referrals: Vee Santos MD [Primary Care Provider] - 1-3 days Discharge Diet: Advance as tolerated Discharge Activity: Resume usual activity Patient Instructions: Chest Pain (ED) Coding Level of Care Code ED [employer]
[2024-03-03 11:54] VITALS: BP 117/84; PULSE 89; RESP 13; O2SAT 92
[2024-03-03 11:58] LABS: Basophils # 0.1 10^3/uL (0.0-0.1); Basophils % 0.9 %; Eosinophils # 0.2 10^3/uL (0.0-0.8); Eosinophils % 3.1 %; Hematocrit 46.7 % (37-53); Lymphocytes # 1.8 10^3/uL (0.8-4.8); Lymphocytes % 23.8 %; Mean Corpuscular HGB Conc 34.5 g/dL (30-55); Monocytes # 0.6 10^3/uL (0.2-0.9); Monocytes % 7.7 %; Neutrophils # 4.74 10^3/uL (1.8-7.7); Neutrophils % 64.2 %; Nucleated Red Blood Cells % 0 %; Platelet Count 291 10^3/cmm (157-399); Red Blood Count 5.19 10^6/uL (3.85-5.65); Red Cell Distribution Width 13.2 % (12.1-15.1); White Blood Count 7.39 10^3/uL (3.29-11.43)
[2024-03-03 12:16] LABS: Albumin Level 4.1 g/dL (3.5-5.2); Alkaline Phosphatase 86 U/L (40-130); Blood Urea Nitrogen 10 mg/dL (8-23); Calcium 8.6 mg/dL (8.5-10.5); Chloride 106 mmol/L (98-107); Creatinine Clr Calc Pharmacy 62.4058; Globulin 2.6 g/dL (1.3-4.6); Osmolality Calculated 285 mOsm/kg (285-295); Sodium 137 mmol/L (136-145); Total Bilirubin 0.8 mg/dL (0.15-1.2); Total Protein 6.7 g/dL (6.6-8.7)
[2024-03-03 12:17] LABS: INR 0.94 (0.8-1.2); Troponin(5th) Baseline 14 ng/L (0-15)
[2024-03-03 12:22] VITALS: BP 102/77; PULSE 79; RESP 17; O2SAT 92
[2024-03-03 12:30] VITALS: BP 111/79; PULSE 67; RESP 19; O2SAT 92
[2024-03-03 12:31] LABS: Carbon Dioxide 20 mmol/L (22-29)
[2024-03-03 12:32] LABS: Glomerular Filtration Rate 66.8 mL/min (90-130); Glucose 139 mg/dL (65-115)
[2024-03-03 12:38] LABS: Anion Gap 15.3 (5-19); Potassium 4.3 mmol/L (3.5-5.1)
[2024-03-03 12:39] LABS: Alanine Aminotransferase 20 U/L (0-41); Aspartate Amino Transferase 19 U/L (0-40)
--- NOTE | 2024-03-03 13:34 | ECG_ITS ---
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 Measurements Intervals [place] Rate: 60 P: 13 UT: 194 QRS: 29 QRSD: 85 T: 43 QT: 373 QTc: 373 Interpretive Statements SINUS RHYTHM NONSPECIFIC T-WAVE ABNORMALITY Compared to ECG 03/03/2024 11:40:57 Sinus arrhythmia no longer present T-wave abnormality still present Electronically Signed On 03-03-2024 16:19:52 CDT by Ezequiel Colin M.D. [id number]
[2024-03-03 14:09] LABS: Troponin 5 2HR 13.92 ng/L (0-15)
[2024-03-03 14:12] LABS: Troponin 5 2HR Delta -0.08 ABS# (0-10)
[2024-03-03 14:36] VITALS: BP 117/93; PULSE 63; RESP 16; O2SAT 98
== END 2024-03-03 14:37 | disposition home or self-care (01) ==
PROVIDERS: Emergency Provider Emergency Medicine; PCP Family Medicine
DX: R07.9 Chest pain, unspecified (principal); F17.210 Nicotine dependence, cigarettes, uncomplicated; E78.5 Hyperlipidemia, unspecified
CPT/HCPCS: 36415; 71045; 80053; 84484; 85025; 85610; 93005; 99285

== ENCOUNTER 2024-04-16 06:00 | Outpatient (RCR) | payer MEDICARE, SELFPAY | END 2024-04-29 23:59 | disposition home or self-care (01) | LOC: SPT 06:00 | PROVIDERS: PCP Family Medicine; Visit Provider Family Medicine | DX: M51.16 Intervertebral disc disorders with radiculopathy, lumbar region (principal); M48.02 Spinal stenosis, cervical region | CPT/HCPCS: 97110; 97161 ==

== ENCOUNTER 2024-04-30 08:58 | Outpatient (RCR) | payer MEDICARE, SELFPAY | END 2024-05-30 23:59 | disposition home or self-care (01) | LOC: SPT 08:58 | PROVIDERS: PCP Family Medicine; Visit Provider Family Medicine | DX: M51.16 Intervertebral disc disorders with radiculopathy, lumbar region (principal); M48.02 Spinal stenosis, cervical region | CPT/HCPCS: 97110 ==

== ENCOUNTER 2024-05-28 04:42 | Emergency (ER) | payer MEDICARE, SELFPAY ==
[2024-05-28 04:44] VITALS: BP 160/97; PULSE 73; RESP 16; TEMP 36.9; O2SAT 96; BMI 32.8
[2024-05-28 04:51] VITALS: BP 146/97; PULSE 79; RESP 20; O2SAT 96
--- NOTE | 2024-05-28 04:54 | ED_ITS ---
HPI - Abdominal Pain 2 General: Chief Complaint: Abdominal Pain Stated Complaint: Lower abd pain, Cramps Time Seen by Provider: 05/28/24 04:53 History of Present Illness: 69-year-old male presents emergency room complaining of lower quadrant abdominal pain difficulty with urination he can urinate a little at a primary difficulty decrease his primary completely. He has a history of prostate issues urinary retention is also had UTIs and renal stones in the past. States feels like he has a bladder infection again he does have some burning with urination. Localizes pain to the left lower quadrant denies diarrhea hematochezia or melena. Subjective low-grade fever yesterday none at this time. Denies chest pain or shortness of breath Associated Symptoms: Reports constipation and GI cramping; Denies chills, diarrhea, dysuria, fever(s), hematochezia, hematuria, hematemesis, melena and vomiting Related Data Home Medications Medication Instructions Recorded Confirmed acetaminophen 500 mg tablet 500 mg PO Q6H PRN Pain 10/15/22 04/07/24 (Tylenol Extra Strength) fluticasone propionate 50 2 spray intranasal DAILY PRN 12/26/23 04/07/24 mcg/actuation nasal Allergy Symptoms spray,suspension (Flonase Allergy Relief) tizanidine 4 mg tablet 4 mg PO Q8H PRN MUSCLE SPASMS 12/26/23 04/07/24 atorvastatin 40 mg tablet 40 mg PO DAILY 03/03/24 04/07/24 tamsulosin 0.4 mg capsule 0.4 mg PO QPM 03/03/24 04/07/24 Previous Rx's Medication Instructions Recorded flash glucose scanning reader #1 ea 08/07/23 (FreeStyle Michael 2 [place]) flash glucose sensor (FreeStyle #2 ea 08/07/23 Michael 2 Sensor kit) metoprolol succinate 25 mg 25 mg PO DAILY #90 tabs 04/07/24 tablet,extended release 24 hr cyclobenzaprine 5 mg tablet 5 mg PO TID PRN muscle spasm #10 05/08/24 tabs ibuprofen 800 mg tablet 800 mg PO Q8H PRN pain #30 tabs 05/20/24 ciprofloxacin HCl 500 mg tablet 500 mg PO BID #14 tabs 05/28/24 (Cipro) metronidazole 500 mg tablet 500 mg PO BID 7 days #14 tabs 05/28/24 Allergies Allergy/AdvReac Type Severity Reaction Status Date / Time No Known Allergies Allergy Verified 04/07/24 13:52 Review of Systems 2 Const: Denies: fever(s) or chills Card: Denies: chest pain Resp: Denies: dyspnea GI: Reports: abdominal pain, constipation and GI cramping; Denies: vomiting, hematemesis, diarrhea, hematochezia or melena : Reports: difficulty urinating, urinary dribbling and difficulty starting urination; Denies: flank pain, dysuria, urinary frequency, urinary urgency or hematuria Musc: Denies: neck pain or back pain Skin/Breast: Denies: rash PFSH ED 2 PFSH: Medical History Asymptomatic microscopic hematuria Tobacco use Seasonal allergies Chronic back pain Hyperlipidemia History of diverticulitis Surgical History History of cholecystectomy History of back surgery x 5 History of carpal tunnel release of both wrists Family History Father , IN HIS 80'S Diabetes Cancer colon Mother , IN HER 80'S Dementia Cancer brain tumor Denies family history of CAD (coronary artery disease) Chronic kidney disease (CKD) Family history of premature coronary artery disease Hypertension Stroke Social History Smoking and tobacco/nicotine status: current every day tobacco/nicotine user (1 pack) cigarettes Packs smoked per day: 1 [ Other cigarette details: started smoking at 20] Quit status (tobacco/nicotine): not considering quitting Alcohol intake: current Alcohol intake frequency: holidays/special occasions only Substance/Drug Use: never Household members: spouse Marital status: service: Yes (1 year) status: Discharged branch: [employer] Current occupational status: retired Physical Exam 2 Const: COMMON NORMALS: no acute distress GENERAL APPEARANCE: cooperative and comfortable ORIENTATION/CONSCIOUSNESS: Yes awake, Yes oriented to person, Yes oriented to place and Yes oriented to time HENMT: COMMON NORMALS: normocephalic, atraumatic and hearing grossly normal bilaterally HEAD & SCALP: normocephalic and atraumatic Resp: COMMON NORMALS: normal respiratory effort, No retractions, No use of accessory muscles and clear to auscultation bilaterally AUSCULTATION: clear to auscultation bilaterally Cardio: COMMON NORMALS: regular rate, regular rhythm and No murmurs present (Cardio) RATE: regular rate RHYTHM: regular rhythm GI: COMMON NORMALS: No hepatosplenomegaly present AUSCULTATION: Yes normoactive bowel sounds PALPATION: Yes Tenderness to palpation present (GI) Details: LLQ, No Guarding due to palpation present (GI) and Yes No hepatosplenomegaly present Extremity: COMMON NORMALS: normal to inspection, capillary refill normal, no clubbing, cyanosis or edema, no calf tenderness and no pedal edema Neuro: SENSORIUM/ORIENTATION: Yes oriented to person, Yes oriented to place and Yes oriented to time Skin: COMMON NORMALS: no rashes or lesions noted GENERAL SKIN EXAM: no rashes or lesions noted Course 2 Vital Signs: Vital signs: Vital Signs Temperature 98.4 F 05/28/24 06:26 Pulse Rate 78 05/28/24 06:26 Respiratory Rate 18 05/28/24 06:26 Blood Pressure 151/103 05/28/24 06:26 Pulse Oximetry 94 05/28/24 06:26 Oxygen Delivery Me thod Room Air 05/28/24 06:07 MDM - Abdominal Pain Medical Decision Making Mild leukocytosis. No evidence of retained urine on bladder scan or on CT. CT shows mild diverticulitis no free air no perforation discharged home clear liquid diet for the next couple days and advance as tolerated started on Cipro and metronidazole. Follow-up with primary care if not improving Lab Data 05/28/24 04:50 05/28/24 04:50 Labs/Radiology: Radiology Impressions Abdomen/Pelvis CT 05/28/24 05:19 IMPRESSION: 1. Diverticulosis with diverticulitis involving the distal descending colon. No free air or abscess is appreciated. 2. Fatty infiltration of the liver. COMMENTS: Consistent with the [employer]'s Incidental Findings Committee white paper (J Am Wilber Radiol 2018): Any incidental renal lesion less than 1 cm or classified as too small to characterize, or any incidental cystic renal lesion characterized as simple-appearing, is likely benign. No follow-up imaging is recommended for these lesions per consensus recommendations based on imaging criteria. Laboratory Results WBC 13.31 10^3/uL (3.29-11.43) H 05/28/24 04:50 RBC 5.73 10^6/uL (3.85-5.65) H 05/28/24 04:50 Hgb 17.50 g/dL (11.27-16.99) H 05/28/24 04:50 Hct 50.3 % (37-53) 05/28/24 04:50 MCV 87.8 fl (82-101) 05/28/24 04:50 MCH 30.5 pg (27-33) 05/28/24 04:50 MCHC 34.8 g/dL (30-55) 05/28/24 04:50 RDW 13.1 % (12.1-15.1) 05/28/24 04:50 Plt Count 299 10^3/cmm (157-399) 05/28/24 04:50 MPV 8.7 fL (7.4-10.4) 05/28/24 04:50 Neut % (Auto) 68.9 % 05/28/24 04:50 Lymph % (Auto) 19.2 % 05/28/24 04:50 Desha % (Auto) 8.7 % 05/28/24 04:50 Eos % (Auto) 2.1 % 05/28/24 04:50 Baso % (Auto) 0.7 % 05/28/24 04:50 Neut # (Auto) 9.17 10^3/uL (1.8-7.7) H 05/28/24 04:50 Lymph # (Auto) 2.6 10^3/uL (0.8-4.8) 05/28/24 04:50 Desha # (Auto) 1.2 10^3/uL (0.2-0.9) H 05/28/24 04:50 Eos # (Auto) 0.3 10^3/uL (0.0-0.8) 05/28/24 04:50 Baso # (Auto) 0.1 10^3/uL (0.0-0.1) 05/28/24 04:50 Nucleated RBC % (auto) 0 % 05/28/24 04:50 Nucleated RBCs # 0.0 /100WBC 05/28/24 04:50 Sodium 137 mmol/L (136-145) 05/28/24 04:50 Potassium 4.4 mmol/L (3.5-5.1) 05/28/24 04:50 Chloride 102 mmol/L (98-107) 05/28/24 04:50 Carbon Dioxide 20 mmol/L (22-29) L 05/28/24 04:50 Anion Gap 19.4 (5-19) H 05/28/24 04:50 BUN 10 mg/dL (8-23) 05/28/24 04:50 Creatinine 1.0 mg/dL (0.7-1.2) 05/28/24 04:50 GFR Calculation 74.5 mL/min (90-130) L 05/28/24 04:50 Glucose 108 mg/dL (65-115) 05/28/24 04:50 Calculated Osmolality 284 mOsm/kg (285-295) L 05/28/24 04:50 Lactic Acid 1.2 mmol/L (0.5-2.2) 05/28/24 04:50 Calcium 9.0 mg/dL (8.5-10.5) 05/28/24 04:50 Total Bilirubin 1.2 mg/dL (0.15-1.2) 05/28/24 04:50 AST 16 U/L (0-40) 05/28/24 04:50 ALT 18 U/L (0-41) 05/28/24 04:50 Alkaline Phosphatase 96 U/L (40-130) 05/28/24 04:50 Total Protein 7.7 g/dL (6.6-8.7) 05/28/24 04:50 Albumin 4.2 g/dL (3.5-5.2) 05/28/24 04:50 Globulin 3.5 g/dL (1.3-4.6) 05/28/24 04:50 Lipase 54 U/L (13-60) 05/28/24 04:50 Urine Color Yellow (Yellow) 05/28/24 05:17 Urine Appearance Clear (CLEAR) 05/28/24 05:17 Urine pH 5.5 (5-7) 05/28/24 05:17 Ur Specific [place] 1.013 (1.005-1.030) 05/28/24 05:17 Urine Protein Negative (Negative) 05/28/24 05:17 Urine Glucose (UA) Negative (Normal) 05/28/24 05:17 Urine Ketones Negative (Negative) 05/28/24 05:17 Urine Blood 1+ (Negative) A 05/28/24 05:17 Urine Nitrate Negative (Negative) 05/28/24 05:17 Urine Bilirubin Negative (Negative) 05/28/24 05:17 Urine Urobilinogen 1.0 mg/dL (Negative) 05/28/24 05:17 Ur Leukocyte Esterase Negative (Negative) 05/28/24 05:17 Urine RBC 0-2 /hpf (0-2) 05/28/24 05:17 Urine WBC 0-5 /hpf (0-5) 05/28/24 05:17 Ur Squamous Epith Cells 0-5 /hpf (0-5) 05/28/24 05:17 Amorphous Sediment Not Reportable 05/28/24 05:17 Urine Bacteria None seen /hpf (NONE) 05/28/24 05:17 Hyaline Casts 0-4 /lpf H 05/28/24 05:17 All radiology interpretation(s) finalized by discharge Discharge Plan Discharge Patient Disposition: Home Clinical Impression: Diverticulitis Condition: Stable Prescriptions: New Cipro 500 mg tablet 500 mg PO BID Qty: 14 0RF metronidazole 500 mg tablet 500 mg PO BID 7 Days Qty: 14 0RF No Action acetaminophen [Tylenol Extra Strength] 500 mg tablet 500 mg PO Q6H PRN (Reason: Pain) (DME) FreeStyle Michael 2 [place] Misc See Rx Instructions .MEDSUPPLY Qty: 1 0RF Rx Instructions: Use as directed to check blood sugar (DME) FreeStyle Michael 2 Sensor Kit See Rx Instructions .MEDSUPPLY Qty: 2 11RF Rx Instructions: Change every 14 days; Use as directed to check blood sugar cyclobenzaprine 5 mg tablet 5 mg PO TID PRN (Reason: muscle spasm) Qty: 10 0RF metoprolol succinate 25 mg tablet extended release 24 hr 25 mg PO DAILY Qty: 90 1RF ibuprofen 800 mg tablet 800 mg PO Q8H PRN (Reason: pain) Qty: 30 0RF atorvastatin 40 mg tablet 40 mg PO DAILY tamsulosin 0.4 mg capsule 0.4 mg PO QPM fluticasone propionate [Flonase Allergy Relief] 50 mcg/actuation [place],Suspension 2 spray INTRANASAL DAILY PRN (Reason: Allergy Symptoms) Rx Instructions: administer into each nostril tizanidine 4 mg tablet 4 mg PO Q8H PRN (Reason: MUSCLE SPASMS) Discharge Orders: Discharge ED (Routine); Ordered 05/28/24 Ordered By: Warren Talavera Referrals: Vee Santos MD [Primary Care Provider] - Patient Instructions: Diverticulitis (ED), Opioid Safety, Pain Management Activity Restrictions/Additional Instructions: Thank you for choosing [facility] for your healthcare needs today. It is very important that you follow up as instructed or that you return to the Emergency Department should you have concerns or if your condition changes or worsens in any way. You were seen today for complaints of left lower quadrant abdominal pain. We did scan your bladder there is no retained urine. CT showed acute diverticulitis in the left lower quadrant. Recommend starting on ciprofloxacin and metronidazole each 1 tablet twice a day for 7 days. COVID diet for 1 to 2 days and advance as tolerated. Coding Level of Care Code ED [place] for Elmer Herrmann
[2024-05-28 05:01] LABS: Basophils # 0.1 10^3/uL (0.0-0.1); Basophils % 0.7 %; Eosinophils # 0.3 10^3/uL (0.0-0.8); Eosinophils % 2.1 %; Hematocrit 50.3 % (37-53); Lymphocytes # 2.6 10^3/uL (0.8-4.8); Lymphocytes % 19.2 %; Mean Corpuscular HGB Conc 34.8 g/dL (30-55); Mean Corpuscular Hemoglobin 30.5 pg (27-33); Mean Corpuscular Volume 87.8 fl (82-101); Mean Platelet Volume 8.7 fL (7.4-10.4); Monocytes # 1.2 10^3/uL (0.2-0.9); Monocytes % 8.7 %; Neutrophils # 9.17 10^3/uL (1.8-7.7); Neutrophils % 68.9 %; Nucleated Red Blood Cells % 0 %; Platelet Count 299 10^3/cmm (157-399); Red Blood Count 5.73 10^6/uL (3.85-5.65); Red Cell Distribution Width 13.1 % (12.1-15.1); White Blood Count 13.31 10^3/uL (3.29-11.43)
[2024-05-28 05:13] LABS: Alanine Aminotransferase 18 U/L (0-41); Albumin Level 4.2 g/dL (3.5-5.2); Alkaline Phosphatase 96 U/L (40-130); Anion Gap 19.4 (5-19); Aspartate Amino Transferase 16 U/L (0-40); Blood Urea Nitrogen 10 mg/dL (8-23); Carbon Dioxide 20 mmol/L (22-29); Chloride 102 mmol/L (98-107); Creatinine Clr Calc Pharmacy 68.6464; Globulin 3.5 g/dL (1.3-4.6); Glomerular Filtration Rate 74.5 mL/min (90-130); Glucose 108 mg/dL (65-115); Osmolality Calculated 284 mOsm/kg (285-295); Potassium 4.4 mmol/L (3.5-5.1); Sodium 137 mmol/L (136-145); Total Bilirubin 1.2 mg/dL (0.15-1.2); Total Protein 7.7 g/dL (6.6-8.7)
[2024-05-28 05:19] LABS: Charge for UA Resulting for Rev
--- NOTE | 2024-05-28 05:19 | CTR_ITS ---
PROCEDURE INFORMATION: Exam: CT Abdomen And Pelvis With Contrast Exam date and time: 05/28/2024 5:33 AM Age: 69 years old Clinical indication: Other: Unable to urinate; Abdominal pain; Flank; Left lower quadrant (llq); Prior surgery; Surgery date: 6+ months; Surgery type: Choley, 5 back surgeries; Additional info: Abd pain TECHNIQUE: Imaging protocol: Computed tomography of the abdomen and pelvis with contrast. Radiation optimization: All CT scans at this facility use at least one of these dose optimization techniques: automated exposure control; mA and/or kV adjustment per patient size (includes targeted exams where dose is matched to clinical indication); or iterative reconstruction. Contrast material: OMNI 350; Contrast volume: 100 ml; Contrast route: INTRAVENOUS (IV); COMPARISON: CT kidney stone [id number] 12/27/2023 10:39 AM RADIATION DOSE METRICS: Total DLP (mGy-cm): 838.61 FINDINGS: Lungs: Lung bases are clear as visualized. Liver: There is diffuse fatty infiltration of the liver. The liver is otherwise normal. Gallbladder and biliary ducts: The gallbladder is surgically absent. Pancreas: Normal. No ductal dilation. Spleen: Normal. No splenomegaly. Adrenal glands: Normal. No mass. Kidneys and ureters: There are small benign-appearing renal cysts. The kidneys are otherwise normal. Stomach and bowel: There are scattered colonic diverticula. There is wall thickening with adjacent inflammatory fat stranding involving the distal descending colon compatible with diverticulitis. No dilated loops of large or small bowel is appreciated. Appendix: No evidence of appendicitis. Intraperitoneal space: Unremarkable. No free air. No significant fluid collection. Vasculature: The aorta is normal in caliber. There is calcified plaque involving the aorta and its branch vessels. Lymph nodes: Unremarkable. No enlarged lymph nodes. Urinary bladder: Unremarkable as visualized. Reproductive: Unremarkable as visualized. Bones/joints: There are postoperative changes involving the spine. No blastic or lytic bony lesions are identified. Soft tissues: There is a tiny fat filled periumbilical hernia. CT/CT abdomen pelvis w con* [id number] IMPRESSION: 1. Diverticulosis with diverticulitis involving the distal descending colon. No free air or abscess is appreciated. 2. Fatty infiltration of the liver. COMMENTS: Consistent with the [employer]'s Incidental Findings Committee white paper (J Am Wilber Radiol 2018): Any incidental renal lesion less than 1 cm or classified as too small to characterize, or any incidental cystic renal lesion characterized as simple-appearing, is likely benign. No follow-up imaging is recommended for these lesions per consensus recommendations based on imaging criteria.
[2024-05-28 05:22] LABS: Bilirubin Urine Negative (Negative); Blood Urine 1+ (Negative); Glucose Urine UA Negative (Normal); Ketones Urine Negative (Negative); Leukocyte Esterase Urine Negative (Negative); Nitrate Urine Negative (Negative); Protein Urine Negative (Negative); Specific Gravity, Urine 1.013 (1.005-1.030); Urine Appearance Clear (CLEAR); Urine Color Yellow (Yellow); pH Urine 5.5 (5-7)
[2024-05-28 05:34] LABS: Bacteria Urine None Seen /hpf; Hyaline Casts Urine 0-4 /lpf; RBC Urine 0-2 /hpf (0-2); Squamous Epithelial Cell Urine 0-5 /hpf (0-5); WBC Urine 0-5 /hpf (0-5)
[2024-05-28] MEDS: iohexol 350 mg/mL 500 mL Btl (per mL) IV (05:38)
[2024-05-28 05:42] VITALS: BP 171/93; PULSE 75; RESP 16; O2SAT 94
[2024-05-28 05:53] LABS: Lactic Sepsis W/Reflex 1.2 mmol/L (0.5-2.2)
[2024-05-28 05:54] LABS: Lipase 54 U/L (13-60)
[2024-05-28 06:07] VITALS: BP 151/103; PULSE 78; RESP 18; O2SAT 94
[2024-05-28 06:26] VITALS: BP 151/103; PULSE 78; RESP 18; TEMP 36.9; O2SAT 94
== END 2024-05-28 06:30 | disposition home or self-care (01) ==
PROVIDERS: Emergency Provider Family Medicine; PCP Family Medicine
DX: K57.92 Diverticulitis of intestine, part unspecified, without perforation or abscess without bleeding (principal); F17.210 Nicotine dependence, cigarettes, uncomplicated; E78.5 Hyperlipidemia, unspecified
CPT/HCPCS: 51798; 74177; 80053; 81003; 81015; 83605; 83690; 85025; 99285; Q9967

== ENCOUNTER → 2024-07-15 13:45 | Outpatient (BNVA) | payer MEDICARE, SELFPAY | PROVIDERS: PCP Family Medicine; Visit Provider Family Medicine | DX: Z87.442 Personal history of urinary calculi (principal); N39.0 Urinary tract infection, site not specified | CPT/HCPCS: 81000; 81003 ==

== ENCOUNTER 2024-10-26 11:20 | Outpatient (CLI) | payer MEDICARE, SELFPAY ==
--- NOTE | 2024-10-26 11:26 | XR_ITS ---
WS: [id number] Exam: XR shoulder RT min 2V* [id number] Date/Time of Exam: 10/26/2024 11:42 AM Reason For Exam: injury 5 months ago, continued pain hand numbness No fracture or dislocation. Mild DJD of the AC joint. Normal soft tissues. XR/XR shoulder RT min 2V* [id number] IMPRESSION: 1. Mild AC joint DJD.
--- NOTE | 2024-10-26 11:26 | XR_ITS ---
WS: [id number] Exam: [place] [id number] Date/Time of Exam: 10/26/2024 11:42 AM Reason For Exam: injury 5 months ago, continued pain hand numbness No fracture or dislocation. Adjacent soft tissues appear normal. No sign of bone destruction. XR/[place] [id number] IMPRESSION: 1. Unremarkable RIGHT scapula.
== END 2024-10-26 11:21 | disposition home or self-care (01) ==
LOC: RAD 11:24
PROVIDERS: PCP Family Medicine; Visit Provider Family Medicine
DX: M89.8X1 Other specified disorders of bone, shoulder (principal); R20.0 Anesthesia of skin; M19.011 Primary osteoarthritis, right shoulder
CPT/HCPCS: 73010; 73030

== ENCOUNTER → 2024-12-03 10:09 | Outpatient (BNVA) | payer MEDICARE, SELFPAY | PROVIDERS: PCP Family Medicine; Referring Provider Family Medicine; Visit Provider Psychiatry & Neurology Neurology | DX: R20.0 Anesthesia of skin (principal); R20.2 Paresthesia of skin; M25.511 Pain in right shoulder; M79.631 Pain in right forearm | CPT/HCPCS: 95912 ==

== ENCOUNTER → 2024-12-16 09:46 | Outpatient (BNVA) | payer MEDICARE, SELFPAY | PROVIDERS: PCP Family Medicine; Visit Provider Specialist | DX: G56.03 Carpal tunnel syndrome, bilateral upper limbs (principal) | CPT/HCPCS: 73130; 99204 ==

== ENCOUNTER → 2025-01-06 10:10 | Outpatient (BNVA) | payer MEDICARE, SELFPAY | PROVIDERS: PCP Family Medicine; Visit Provider Specialist | DX: M48.02 Spinal stenosis, cervical region (principal); M79.601 Pain in right arm; R20.0 Anesthesia of skin | CPT/HCPCS: 99214 ==

== ENCOUNTER → 2025-08-17 09:57 | Outpatient (BNVA) | payer MEDICARE, SELFPAY | PROVIDERS: PCP Family Medicine; Visit Provider Family Medicine | DX: E78.5 Hyperlipidemia, unspecified (principal); I49.3 Ventricular premature depolarization | CPT/HCPCS: 80053; 80061 ==